=== PATIENT | female | born 1965 | race Hispanic/Latino ===

== ENCOUNTER 2017-12-25 17:22 | Emergency (ER) | payer MEDICARE ==
[~2017-12-25] VITALS: Ht 157.5 cm; Wt 108.9 kg
[~2017-12-25 17:22] MED LIST: AMLODIPINE BESY10 MG PO; KEPPRA500 MG PO; LISINOPRIL10 MG PO; NEURONTIN300 MG PO; NORCO 5-325 TA1 EACH PO
[2017-12-25] MEDS ORDERED: ONDANSETRON HCL INJ 2 MG/ML VIAL IV STA ×2 (17:58→18:07)
[2017-12-25] MEDS ORDERED: SODIUM CHLORIDE 0.9% 1000ML 1,000 ML IV STA (17:58)
[2017-12-25] MEDS ORDERED: LABETALOL HCL 5 MG/ML 20ML VIAL IV STA ×2 (18:05→18:48)
[2017-12-25 18:14] LABS: BASOPHILS % 0.3 % (0.0-1.0); EOSINOPHILS # (AUTO) 0.1 (0.0-0.4); EOSINOPHILS % 1.5 % (0.0-6.0); HEMATOCRIT 40.5 % (34.2-44.1); HEMOGLOBIN 13.2 g/dL (12.0-16.0); LYMPHOCYTES # (AUTO) 2.1 (1.0-3.2); LYMPHOCYTES % 27.5 % (18.0-39.1); MEAN CORPUSCULAR HEMOGLOBIN 27.2 pg (28-32); MEAN CORPUSCULAR HGB CONC 32.6 g/dL (31-35); MEAN CORPUSCULAR VOLUME 83.3 fL (81-99); MONOCYTES # (AUTO) 0.4 (0.2-0.8); MONOCYTES % 5.2 % (4.4-11.3); NEUTROPHILS # (AUTO) 4.9 (2.1-6.9); NEUTROPHILS % 65.2 % (38.7-80.0); PLATELET COUNT 152 x10e3/uL (140-360); RED BLOOD COUNT 4.86 x10e6/uL (3.6-5.1); RED CELL DISTRIBUTION WIDTH 13.1 % (11.7-14.4)
[2017-12-25 18:23] LABS: INR 1.06
[2017-12-25 18:24] LABS: PARTIAL THROMBOPLASTIN TIME 26.9 seconds (23.8-35.5)
[2017-12-25 18:33] LABS: ALANINE AMINOTRANSFERASE 40 IU/L (0-55); ALBUMIN 4.2 g/dL (3.5-5.0); ALBUMIN/GLOBULIN RATIO 1.2 (0.8-2.0); ALKALINE PHOSPHATASE 95 IU/L (40-150); ANION GAP 14.1 mmol/L (8-16); BLOOD UREA NITROGEN 12 mg/dL (7-26); BUN/CREATININE RATIO 14 (6-25); CALCIUM 9.9 mg/dL (8.4-10.2); CARBON DIOXIDE 25 mmol/L (22-29); CHLORIDE 106 mmol/L (98-107); CREATINE KINASE 89 IU/L (29-168); CREATININE, SERUM 0.88 mg/dL (0.57-1.11); EST GLOMERULAR FILTRATION RATE > 60 ML/MIN (60-); GLUCOSE 107 mg/dL (74-118); POTASSIUM 4.1 mmol/L (3.5-5.1); SODIUM 141 mmol/L (136-145)
--- NOTE | 2017-12-25 18:57 | Diagnostic Imaging Report ---
EXAMINATION: CT angiogram of the head. HISTORY: Headache, dizziness, now she had, history of intracranial aneurysm, COMPARISON STUDIES: Head CT on 06/09/2014 TECHNIQUE: Axial images were obtained from the skull base to the vertex. Coronal and sagittal images reconstructed from the axial data. Intravenous contrast: 100 cc of Isovue-370. For optimization of of anatomic evaluation, multi-planar reconstructions, maximum intensity projections, and advanced 3D off-line post-processing was obtained and performed on a dedicated stand-alone workstation under the direct supervision of the interpreting physician. Dose modulation, iterative reconstruction, and/or weight based adjustment of the mA/kV was utilized to reduce the radiation dose to as low as reasonably achievable. 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 Internal carotid arteries and proximal branches: Right: Patent. No abnormalities. Left: Patent. No abnormalities. Vertebral arteries: Patent. No abnormalities. Basilar artery: Patent. No abnormalities. Posterior cerebral arteries: Patent. No abnormalities. Anatomical variants: Acom :Patent Pcom: Patent on the left, not visualized on the right. Vertebral arteries: Codominant. Small fenestration of the basilar artery IMPRESSION: 1. 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 2. Otherwise unremarkable [place] angiogram. Signed by: Dr. Alison Godfrey M.D. on 12/25/2017 6:54 PM
[2017-12-25] MEDS ORDERED: MECLIZINE HCL 12.5 MG TAB PO ONE (19:00)
[2017-12-25 21:12] LABS: CLARITY,URINE CLEAR (CLEAR); COLOR,URINE YELLOW (YELLOW); LEUKOCYTE ESTERASE ,URINE NEGATIVE (NEGATIVE); NITRITE,URINE NEGATIVE (NEGATIVE)
[2017-12-25 21:13] LABS: BILIRUBIN,URINE NEGATIVE (NEGATIVE); EPITHELIAL CELLS,URINE MODERATE /LPF; KETONES,URINE NEGATIVE (NEGATIVE); PROTEIN,URINE DIPSTICK NEGATIVE (NEGATIVE); URINE UROBILINOGEN 0.2 mg/dL (0.2 - 1)
[2017-12-25] MEDS ORDERED: SODIUM CHLORIDE 0.9% 100 ML 100 ML ONE (22:35)
[2017-12-25] MEDS ORDERED: IOPAMIDOL 370 MG/ML 200 ML INFUS..BTL INJ ONE (22:36)
== END 2017-12-25 22:00 | disposition home or self-care (01) ==
LOC: ER 17:22
DX: R42 Dizziness and giddiness (principal); R11.2 Nausea with vomiting, unspecified; R51 Headache; H81.399 Other peripheral vertigo, unspecified ear; I10 Essential (primary) hypertension
CPT/HCPCS: 36415; 70496; 80053; 81001; 82550; 82553; 84484; 85025; 85610; 85730; 87086; 99284; J2405; J3490; J7030; Q9967

== ENCOUNTER 2018-06-08 23:15 | Emergency (ER) | payer MEDICARE ==
[~2018-06-08] VITALS: Ht 157.5 cm; Wt 108.9 kg
--- OUTSIDE RECORDS SUMMARY | 2018-06-08 23:17 | XMS REPORT | Clinical Summary ---
Author Author [facility] Address Unknown Phone Unavailable Care Team Providers Care Hse Manager Name Role Phone Janette Mendoza MD PCP Allergies Comments Active Allergy Reactions Severity Noted Date Penicillins Rash Low 10/27/2016 Medications End Date Status Medication Sig Dispensed Refills Start Date Active cyclobenzaprine Take 5 mg by 0 (FLEXERIL) 5 mg tablet mouth as needed for muscle spasms. Active lisinopril Take 1 tablet 90 tablet 1 (PRINIVIL,ZESTRIL) 20 mg (20 mg total) 7 tablet by mouth daily. Active blood sugar diagnostic 4 times 200 strip 5 strips (glucose blood) daily, 7 strip test fasting and 2 stripsIndications: Type 2 hours after diabetes mellitus with meals. E11.65 hyperglycemia, unspecified termite renewal inspector insulin use status Active blood-glucose meter 4 times 1 each 0 kitIndications: Type 2 daily, 7 diabetes mellitus with fasting and 2 hyperglycemia, hours after unspecified termite renewal inspector meals. E11.65 insulin use status Active lancets 30 gauge 4 times 200 each 3 miscIndications: Type 2 daily, 7 diabetes mellitus with fasting and 2 hyperglycemia, hours after unspecified nursing home meals. E11.65 insulin use status Active dapagliflozin-metformin Take 1 tablet 60 each 1 5-1,000 mg tablet, IR & by mouth 7 ER, biphasic 24hr daily. Active Problems Problem Noted Date Morbid obesity with BMI of 40.0-44.9, adult 10/27/2016 Glucose intolerance (impaired glucose tolerance) 10/27/2016 Essential hypertension 10/27/2016 Dietary counseling 10/27/2016 Exercise counseling 10/27/2016 Family History Medical History Relation Name Comments Diabetes Brother Nueropathy Diabetes Brother No Known Problems Father No Known Problems Mother Diabetes Sister Relation Name Status Comments Brother Brother Father Mother Sister Social History Date Tobacco Use Types Packs/Day Years Used Never Smoker Smokeless Tobacco: Never Used Alcohol Use Drinks/Week oz/Week Comments No Sex Assigned at Date Recorded Not on file Industry Job Start Date Occupation Not on file Not on file Not on file Travel End Travel History Travel Start No recent travel history available. Last Filed Vital Signs Not on file Plan of Treatment Health Maintenance Due Date Last Done Comments CERVICAL CANCER SCREENING 1987 BREAST CANCER SCREENING 2016 COLON CANCER SCREENING 2016 SHINGLES VACCINES (1 of 2016 2) INFLUENZA VACCINE 11/28/2017 Results Not on fileafter 06/07/2017 Insurance Payer Benefit Subscriber ID Type Phone Address Plan / Group AETNA MEDICARE AETNA xxxxxxxx HMO MEDICARE HMO/PPO [facility] Advance Directives Patient has advance care planning documents on file. For more information, luis alberto palacio contact: Bethel Gore [address] [place] [address]
--- OUTSIDE RECORDS SUMMARY | 2018-06-08 23:17 | XMS REPORT ---
Author Author [facility] Address Unknown Phone Unavailable Care Team Providers Care Interpersonal Communications Professor Name Role Phone MABELIsabel JOHN Unavailable Unavailable Problems This patient has no known problems. Allergies, Adverse Reactions, Alerts This patient has no known allergies or adverse reactions. Medications This patient has no known medications. Results Test Description Test Time Test Comments Text Results Atomic Results Result Comments SCR MAMM BILATERAL SHAREE CAD DIGITAL 2018-04-11 11:12:51 - SCR MAMM BILATERAL SHAREE CAD DIGITALBILATERAL DIGITAL SCREENING MAMMOGRAM 3D/2D WITH CAD: 04/11/2018CLINICAL: Asymptomatic. Digital breast tomosynthesis was performed in addition to routine CC and MLO views. Current mammographic images were evaluated by either a [employer] M-Vu or a M-Dot Network ImageChecker CAD (computer aided detection system). Comparison is made to exams dated 04/10/2017 mammogram, mammogram, and 03/22/2011 mammogram - [facility]. There are scattered fibroglandular tissues in both breasts. No suspicious mass, architectural distortion, malignant type calcification, or lymph node abnormality detected. Breast architecture is stable compared to prior exams.IMPRESSION: NEGATIVEThere is no mammographic evidence of malignancy. Resume annual screening mammography in one year. Aiden Maynard M.D. ss/penrad:04/11/2018 11:12:51 [place] Conservationist: Mahi SPAIN, [facility] sent: BIRADS 1-2 Normal Mammogram BI-RADS: 1 Negative CTA BRAIN 2017-12-25 18:37:[address] [address] Patient Name: JASON MAY MR #: [id number] : 1965 Age/Sex: 52/F Req #: [id number] Adm Physician: Ordered by: GREGORY CINTRON EXECUTIVE SALES ASSISTANT Report #: [id number] Location: ER Room/Bed: Procedure: [id number] CT/CTA BRAIN Exam Date: Exam Time: REPORT STATUS: Signed EXAMINATION: CT angiogram of the head. HISTORY: Headache, dizziness, now she had, history of intracranial aneurysm, COMPARISON STUDIES: Head CT on 06/09/2014 TECHNIQUE: Axial images were obtained from the skull base to the vertex. Coronal and sagittal images reconstructed from the axial data. Intravenous contrast: 100 cc of Isovue-370. For optimization of of anatomic evaluation, multi-planar reconstructions, maximum intensity projections, and advanced 3D off-line post-processing was obtained and performed on a dedicated stand-alone workstation under the direct supervision of the interpreting physician. Dose modulation, iterative reconstruction, and/or weight based adjustment of the mA/kV was utilized to reduce the radiation dose to as low as reasonably achievable. FINDINGS: Status post clipping of an anterior comm unicating artery aneurysm, streak artifact from metallic coils limits the evaluation of the anterior communicating/VISH complex region, no discrete residual or recurrent aneurysm. Internal carotid arteries and proximal branches: Right: Patent. No abnormalities. Left: Patent. No abnormalities. Vertebral arteries: Patent. No abnormalities. Basilar artery: Patent. No abnormalities. Posterior cerebral arteries: Patent. No abnormalities. Anatomical variants: Acom :Patent Pcom: Patent on the left, not visualized on the right. Vertebral arteries: Codominant. Small fenestration of the basilar artery IMPRESSION: 1. 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 2. Otherwise unremarkable [place] CT angiogram. Signed by: Dr. Juliana Godfrey M.D. on 12/25/2017 6:54 PM Dictated By: JULIANA GODFREY MD 53 Transcribed By: ALEXANDER on 12/25/171853 COPY TO: GREGORY CINTRON NP
[2018-06-08 23:47] LABS: BASOPHILS % 0.3 % (0.0-1.0); EOSINOPHILS # (AUTO) 0.1 (0.0-0.4); EOSINOPHILS % 1.6 % (0.0-6.0); HEMATOCRIT 41.9 % (34.2-44.1); HEMOGLOBIN 13.4 g/dL (12.0-16.0); LYMPHOCYTES # (AUTO) 2.6 (1.0-3.2); LYMPHOCYTES % 32.8 % (18.0-39.1); MEAN CORPUSCULAR HEMOGLOBIN 26.5 pg (28-32); MONOCYTES # (AUTO) 0.4 (0.2-0.8); MONOCYTES % 5.4 % (4.4-11.3); NEUTROPHILS # (AUTO) 4.7 (2.1-6.9); NEUTROPHILS % 59.6 % (38.7-80.0); PLATELET COUNT 114 x10e3/uL (140-360); RED BLOOD COUNT 5.05 x10e6/uL (3.6-5.1); RED CELL DISTRIBUTION WIDTH 13.5 % (11.7-14.4)
[2018-06-08 23:52] LABS: CLARITY,URINE SL CLOUDY (CLEAR); COLOR,URINE YELLOW (YELLOW); LEUKOCYTE ESTERASE ,URINE NEGATIVE (NEGATIVE); NITRITE,URINE NEGATIVE (NEGATIVE); PROTEIN,URINE DIPSTICK NEGATIVE (NEGATIVE)
[2018-06-08 23:53] LABS: BILIRUBIN,URINE NEGATIVE (NEGATIVE); KETONES,URINE NEGATIVE (NEGATIVE); URINE UROBILINOGEN 0.2 mg/dL (0.2 - 1)
[2018-06-09 00:02] LABS: BACTERIA,URINE MODERATE /HPF; EPITHELIAL CELLS,URINE FEW /LPF; MUCUS,URINE FEW (RARE); RBC,URINE 0-5 /HPF (0-5)
[2018-06-09 00:10] LABS: ALANINE AMINOTRANSFERASE 26 IU/L (0-55); ALBUMIN 4.1 g/dL (3.5-5.0); ALBUMIN/GLOBULIN RATIO 1.1 (0.8-2.0); ALKALINE PHOSPHATASE 120 IU/L (40-150); AMYLASE 65 U/L (25-125); ANION GAP 14.8 mmol/L (8-16); BLOOD UREA NITROGEN 16 mg/dL (7-26); BUN/CREATININE RATIO 19 (6-25); CALCIUM 9.2 mg/dL (8.4-10.2); CARBON DIOXIDE 25 mmol/L (22-29); CHLORIDE 104 mmol/L (98-107); CREATININE, SERUM 0.85 mg/dL (0.57-1.11); EST GLOMERULAR FILTRATION RATE > 60 ML/MIN (60-); GLUCOSE 142 mg/dL (74-118); LIPASE 69 U/L (8-78); POTASSIUM 3.8 mmol/L (3.5-5.1); SODIUM 140 mmol/L (136-145)
[2018-06-09] MEDS ORDERED: ONDANSETRON HCL INJ 2MG/ML 2ML 2 MG/ML VIAL IV STA (00:25)
--- NOTE | 2018-06-09 01:31 | Diagnostic Imaging Report ---
EXAM: CT Abdomen and Pelvis WITHOUT contrast INDICATION: Pain COMPARISON: 10/31/2007 CT, no report available TECHNIQUE: Abdomen and Pelvis was scanned utilizing a multidetector helical scanner without the use of IV contrast. Coronal and sagittal reformations were obtained. IV CONTRAST: None COMPLICATIONS: None RADIATION DOSE: Total DLP: 855 mGy*cm Estimated effective dose: (DLP x 0.015 x size factor) mSv CTDIvol has been reviewed. It is below the limits set by the Radiation Protocol Committee (RPC). Appropriate CT dose reduction techniques were utilized. FINDINGS: Abdomen: Lung Bases: No acute findings. Solid Organs: Liver, adrenals, kidneys, spleen, and pancreas unremarkable. No hydronephrosis or renal calculi. Distal ureters poorly evaluated due to spray artifact. Upper GI Tract: No small bowel obstructive changes. Vascularity: No aortic aneurysm. Lymph Nodes: No suspicious adenopathy. Other: None. Pelvis: Bladder: Inadequately evaluated due to spray artifact. Other: Uterus/adnexa grossly unremarkable within limitations of CT evaluation. Colon: No acute colonic findings. Moderate stool. Bones: L5 pars defects with grade 1 anterolisthesis L5 on S1. IMPRESSION: 1. No acute findings. 2. See above for full details. Signed by: Dr. Chris Burton MD on 06/09/2018 1:28 AM
[2018-06-09 01:52] VITALS: BP 123/83
== END 2018-06-09 01:59 | disposition home or self-care (01) ==
LOC: ER 23:15
DX: R10.32 Left lower quadrant pain (principal); N30.90 Cystitis, unspecified without hematuria; I10 Essential (primary) hypertension; E11.9 Type 2 diabetes mellitus without complications; G40.909 Epilepsy, unspecified, not intractable, without status epilepticus
CPT/HCPCS: 36415; 74176; 80053; 81001; 82150; 83690; 85025; 96374; 99284; J2405

== ENCOUNTER 2019-01-15 19:55 | Emergency (ER) | payer MEDICARE ==
[~2019-01-15] VITALS: Ht 157.5 cm; Wt 108.9 kg
[2019-01-15] MEDS ORDERED: SODIUM CHLORIDE 0.9% 500ML 500 ML IV STA (19:58)
[2019-01-15] MEDS ORDERED: SODIUM CHLORIDE 0.9% 1000ML 1,000 ML IV STA (19:58)
[2019-01-15] MEDS ORDERED: ONDANSETRON HCL INJ 2MG/ML 2ML 2 MG/ML VIAL IV STA (19:58)
--- OUTSIDE RECORDS SUMMARY | 2019-01-15 19:58 | XMS REPORT | Clinical Summary ---
Author Author [facility] Address Unknown Phone Unavailable Care Team Providers Care Metal Patternmaker Apprentice Name Role Phone Janette Mendoza MD PCP [...] diabetes mellitus with meals. E11.65 hyperglycemia, unspecified vermin exterminator insulin use status Active blood-glucose meter 4 times 1 each 0 kitIndications: Type 2 daily, 7 diabetes mellitus with fasting and 2 hyperglycemia, hours after unspecified vermin exterminator meals. E11.65 insulin use status Active lancets 30 gauge 4 times 200 each 3 miscIndications: Type 2 daily, 7 diabetes mellitus with fasting and 2 hyperglycemia, hours after unspecified group home meals. E11.65 insulin use status Active [...] Used Never Smoker Smokeless Tobacco: Never Used Drinks/Week oz/Week Comments Alcohol Use No Sex Assigned at Date Recorded Not on file Industry Job Start Date Occupation Not on file Not on file Not on file Travel End Travel History Travel Start No recent travel history available. Last Filed Vital Signs Not on file Plan of Treatment Health Maintenance Due Date Last Done Comments CERVICAL CANCER SCREENING 1987 BREAST CANCER SCREENING 2016 COLONOSCOPY SCREENING 2016 SHINGLES VACCINES (#1) 2016 INFLUENZA VACCINE 11/28/2018 Results Not on fileafter 01/14/2018 Insurance Type Payer Benefit Subscriber ID Effective Phone Address Plan / Dates Group HMO AETNA MEDICARE AETNA xxxxxxxx 2016-P MEDICARE resent HMO/PPO [facility] Advance Directives For more information, please contact: [phone] Patient Leadership Program Internship Explanation Type Date Recorded Advance Directives, Living Will and Medical Power of Differential Specialist
--- OUTSIDE RECORDS SUMMARY | 2019-01-15 19:59 | XMS REPORT | Summary of Care ---
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, dysplasia Reason for Visit LEFT HIP PAIN Vital Signs Most recent to 1 2 oldest [Reference Range]: Height 157.48 cm (07/22/2013 15:10:00 [place] Temperature Oral 98.6 DegF [96.4-99.1 DegF] (07/22/2013 15:10:00 [place] Systolic Blood 140 mmHg 147 mmHg Pressure [90-140 (07/22/2013 19:11:00 [place] *HI* mmHg] (07/22/2013 15:10:00 [place] Diastolic Blood 78 mmHg 88 mmHg Pressure [60-90 (07/22/2013 19:11:00 [place] (07/22/2013 15:10:00 [place] mmHg] Respiratory Rate 18 BRMIN 16 BRMIN [14-20 BRMIN] (07/22/2013 19:11:00 [place]) (07/22/2013 15:10:00 [place] Peripheral Pulse 78 bpm 86 bpm Rate [60-100 bpm] (07/22/2013 19:11:00 [place] (07/22/2013 15:10:00 [place] Weight 105 kg (07/22/2013 15:10:00 [place] Body Mass Index 42.34 m2 (07/22/2013 15:10:00 [place]) Problem List Condition Effective Dates Status Health Status Informant Aneurysm(Confirmed)1 Resolved HTN - Resolved Hypertension(Confirm ed) 1Cerebral aneurysm Allergies, Adverse Reactions, Alerts Status Substance Reaction Severity Active Dilaudid Active iodine Active penicillins Medications Medication Instructions Start Date Stop Date Status ibuprofen 800 mg, Route: PO, Drug form: TAB, 07/22/2013 07/22/2013 Completed ONCE, Dosing Weight 105, kg, Priority: STAT, Start date: 07/22/13 18:12:00, Stop date: 07/22/13 18:12:00 ibuprofen 800 mg 800 mg=1 tab, PO, Q8H, Fever or 07/22/2013 08/01/2013 Ordered oral tablet Pain, Take with food, # 30 tab, 0 Refill(s) Take with food [place] 5/325 oral 1-2 tab, PO, Q4-6H, Pain, # 30 tab, 07/22/2013 07/27/2013 Ordered tablet 0 Refill(s) [place] 5/325 oral 2 tab, Route: PO, Dosing Weight 07/22/2013 07/22/2013 Completed tablet 105, kg, ONCE, Start date: 07/22/13 18:12:00, Stop date: 07/22/13 18:12:00, Medications Administered During Your Visit No data available for this section Immunizations No data available for this section
--- OUTSIDE RECORDS SUMMARY | 2019-01-15 19:59 | XMS REPORT | CCD ---
Author Author Auto Generated Organization [facility] Address Unknown Phone Unavailable Care Team Providers Care Shovel Loader Operator Name Role Phone MaryJessica Wolf CP Allergies, Adverse Reactions, Alerts Substance Reaction Status Dilaudid Active penicillins Active Problem List Condition Effective Dates Status Aneurysm1 Resolved HTN - Hypertension Resolved 1Cerebral aneurysm Medications Medication Instructions Start Date End Date Status Sodium Chloride 0.9% 1,000 mL, Rate: 1000 ml/hr, Infuse 09/08/2012 09/08/2012 Completed IV 1,000 mL over: 1 hr, Route: IV, Dosing Weight 105 kg, Total Volume: 1,000, Start date: 09/08/12 19:31:00, Duration: 1 doses or times, Stop date: 09/08/12 20:30:00 Xanax 0.5 mg oral 1 mg, 2 tab, PO, TID, PRN, 30 tab, 09/08/2012 Ordered tablet Anxiety, Substitution Allowed Norvasc 10 mg oral 10 mg, 1 tab, PO, BID, 30 tab, 09/08/2012 Ordered tablet Substitution Allowed, TAB Combivent inhalation 2 puff, INHALER, QID, PRN, 14 gm, 09/08/2012 Ordered aerosol with adapter WHEEZING, Substitution Allowed, Maintenance ranitidine 150 mg 150 mg, 1 tab, PO, BID, 6 tab, 09/08/2012 Ordered oral tablet Substitution Allowed paroxetine 20 mg 20 mg, 1 tab, PO, Daily, 30 tab, 09/08/2012 Ordered oral tablet Substitution Allowed, TAB Reglan 10 mg, 2 mL, Route: IVP, Drug form: 09/08/2012 09/08/2012 Completed INJ, ONCE, Dosing Weight 105, kg, Priority: STAT, Start date: 09/08/12 19:29:00, Stop date: 09/08/12 19:29:00 gabapentin 300 mg 300 mg, 1 cap, PO, BID, 90 cap, 09/08/2012 Ordered oral capsule Substitution Allowed cyclobenzaprine 10 10 mg, 1 tab, PO, TID, PRN, 30 tab, 09/08/2012 Ordered mg oral tablet for spasm, Substitution Allowed, TAB labetalol 300 mg 300 mg, 1 tab, PO, BID, 180 tab, 09/08/2012 Ordered oral tablet Substitution Allowed, TAB Benadryl 25 mg, 1 cap, Route: PO, Drug form: 09/08/2012 09/08/2012 Completed CAP, ONCE, Dosing Weight 105, kg, Priority: STAT, Start date: 09/08/12 22:26:00, Stop date: 09/08/12 22:26:00 ibuprofen 800 mg, 1 tab, Route: PO, Drug 09/08/2012 09/08/2012 Completed form: TAB, ONCE, Dosing Weight 105, kg, Priority: STAT, Start date: 09/08/12 22:26:00, Stop date: 09/08/12 22:26:00 Keppra 500 mg oral 500 mg, 1 tab, PO, BID, 120 tab, 09/08/2012 Ordered tablet Substitution Allowed NS (Bolus) IV 1000 1,000 mL, Rate: 1,000 ml/hr, Infuse 09/08/2012 09/08/2012 Deleted mL over: 1 hr, Route: IV, Dosing Weight 105 kg, Total Volume: 1,000, Priority: STAT, Start date: 09/08/12 19:27:00, Duration: 1 doses or times, Stop date: 09/08/12 19:27:00 Omnipaque 350mg/ml 145 mL, Route: IVP, Drug Form: 09/08/2012 09/08/2012 Completed SOLN, Dosing Weight 105, kg, ONCALL, STAT, Start date: 09/08/12 21:12:00, Duration: 1 doses or times, Stop date: 09/09/12 0:00:00, Dose=2.2ml/kg, Max [id number] -- "To be infused by Radiology Staff ONLY" Dose=2.2ml/kg, Max [id number] -- "To be infused by Radiology Staff ONLY" ondansetron 8 mg, Route: IVP, Drug form: INJ, 09/08/2012 09/08/2012 Completed ONCE, Dosing Weight 105, kg, Priority: STAT, Start date: 09/08/12 20:02:00, Stop date: 09/08/12 20:02:00 Vital Signs Most recent to oldest [Reference Range]: 1 Height 157.48 cm (09/08/2012 18:29:00) Weight 105 kg (09/08/2012 18:29:00) Results URINALYSIS Most recent to oldest [Reference Range]: 1 UA Turbidity [Clear] Clear (09/08/2012 22:15:20) UA Color [Yellow] Yellow *NA* (09/08/2012 22:15:20) UA pH [5.0-8.0] 8.0 (09/08/2012 22:15:20) UA Spec Grav [<=1.030] 1.010 (09/08/2012 22:15:20) UA Glucose [Negative mg/dL] Negative mg/dL (09/08/2012 22:15:20) UA Blood [Negative] Negative (09/08/2012 22:15:20) UA Ketones [Negative mg/dL] Negative mg/dL *NA* (09/08/2012 22:15:20) UA Protein [Negative mg/dL] Negative mg/dL (09/08/2012 22:15:20) UA Urobilinogen [0.1-1.0 EU/dL] 0.2 EU/dL (09/08/2012 22:15:20) UA Bili [Negative] Negative *NA* (09/08/2012 22:15:20) UA Leuk Est [Negative] Negative (09/08/2012 22:15:20) UA Nitrite [Negative] Negative (09/08/2012 22:15:20) UA WBC [None Seen /HPF] 0-2 /HPF (09/08/2012 22:15:20) UA RBC [0-2 /HPF] 0-2 /HPF (09/08/2012 22:15:20) UA Bacteria [None Seen /HPF] Few /HPF (09/08/2012 22:15:20) UA Sq Epi [Few /LPF] Moderate /LPF *ABN* (09/08/2012 22:15:20) Micro? Performed (09/08/2012 22:15:20) BLOOD BANK RESULTS Most recent to oldest [Reference Range]: 1 ABO/Rh O POS *Unknown* (09/08/2012 20:07:00) Antibody Scrn Negative (09/08/2012 20:07:00) CHEMISTRY Most recent to oldest [Reference Range]: 1 Sodium Lvl [135-145 mEq/L] 140 mEq/L (09/08/2012 20:00:00) Potassium Lvl [3.5-5.1 mEq/L] 4.0 mEq/L (09/08/2012 20:00:00) Chloride Lvl [95-109 mEq/L] 102 mEq/L (09/08/2012 20:00:00) CO2 [24-32 mEq/L] 28 mEq/L (09/08/2012 20:00:00) AGAP [10.0-20.0 mEq/L] 14.0 mEq/L (09/08/2012 20:00:00) Creatinine Lvl [0.5-1.4 mg/dL] 0.9 mg/dL (09/08/2012 20:00:00) eGFR 77 mL/min/1.73m2 1 *NA* (09/08/2012 20:00:00) BUN [7-22 mg/dL] 12 mg/dL (09/08/2012 20:00:00) Glucose Lvl [70-99 mg/dL] 145 mg/dL 2 *HI* (09/08/2012 20:00:00) Total Protein [6.4-8.4 g/dL] 7.4 g/dL (09/08/2012 20:00:00) Albumin Lvl [3.5-5.0 g/dL] 4.0 g/dL (09/08/2012 20:00:00) Globulin [2.0-4.0 g/dL] 3.4 g/dL (09/08/2012 20:00:00) A/G Ratio [0.7-1.6] 1.2 (09/08/2012 20:00:00) Calcium Lvl [8.5-10.5 mg/dL] 8.3 mg/dL *LOW* (09/08/2012 20:00:00) Phosphorus [2.5-4.5 mg/dL] 2.6 mg/dL (09/08/2012 20:00:00) Magnesium Lvl [1.8-2.4 mg/dL] 1.8 mg/dL (09/08/2012 20:00:00) ALT [0-65 unit/L] 33 unit/L (09/08/2012:00:00) AST [0-37 unit/L] 25 unit/L (09/08/2012:00:00) Alk Phos [39-136 unit/L] 99 unit/L (09/08/2012 20:00:00) Bili Total [0.2-1.3 mg/dL] 0.5 mg/dL (09/08/2012:00:00) Bili Direct [0.0-0.3 mg/dL] 0.1 mg/dL (09/08/2012:00:00) Bili Indirect [0.0-1.0 mg/dL] 0.4 mg/dL (09/08/2012:00:00) Lipase Lvl [73-393 unit/L] 133 unit/L (09/08/2012:00:00) Lactic Acid Lvl [0.5-2.2 mMol/L] 1.0 mMol/L (09/08/2012:00:00) 1Result Comment: The eGFR is calculated using the CKD-EPI formula. In most young, healthy individuals the eGFR will be >90 mL/min/1.73m2. The eGFR declines with age. An eGFR of 60-89 may be normal in some populations, particularly the elderly, for whom the CKD-EPI formula has not been extensively validated. Use of the eGFR is not recommended in the following populations: Individuals with unstable creatinine concentrations, including patients and those with serious co-morbid conditions. Patients with extremes in muscle mass or diet. The data above are obtained from the National Kidney Disease Education Program ( NKDEP) which additionally recommends that when the eGFR is used in patients with extremes of body mass index for purposes of drug dosing, the eGFR should be mul tiplied by the estimated BMI. 2Interpretive Data: Adult reference range values reflect the clinical guidelines of the [place] [employer]. HEMATOLOGY Most recent to oldest [Reference Range]: 1 WBC [3.7-10.4 K/CMM] 7.2 K/CMM (09/08/2012 20:00:00) RBC [4.20-5.40 M/CMM] 4.56 M/CMM (09/08/2012 20:00:00) Hgb [12.0-16.0 g/dL] 12.5 g/dL (09/08/2012 20:00:00) Hct [36.0-48.0 %] 37.6 % (09/08/2012 20:00:00) MCV [81.0-99.0 fL] 82.5 fL (09/08/2012 20:00:00) MCH [27.0-31.0 pg] 27.4 pg (09/08/2012 20:00:00) MCHC [32.0-36.0 g/dL] 33.2 g/dL (09/08/2012 20:00:00) RDW [11.5-14.5 %] 12.1 % (09/08/2012 20:00:00) Platelet [133-450 K/CMM] 130 K/CMM *LOW* (09/08/2012 20:00:00) MPV [7.4-10.4 fL] 8.9 fL (09/08/2012 20:00:00) Segs [45.0-75.0 %] 89.4 % *HI* (09/08/2012 20:00:00) Lymphocytes [20.0-40.0 %] 6.8 % *LOW* (09/08/2012 20:00:00) Monocytes [2.0-12.0 %] 2.7 % (09/08/2012 20:00:00) Eosinophils [0.0-4.0 %] 0.9 % (09/08/2012 20:00:00) Basophils [0.0-1.0 %] 0.2 % (09/08/2012 20:00:00) Segs-Bands # [1.5-8.1 K/CMM] 6.4 K/CMM (09/08/2012 20:00:00) Lymphocytes # [1.0-5.5 K/CMM] 0.5 K/CMM *LOW* (09/08/2012 20:00:00) Monocytes # [0.0-0.8 K/CMM] 0.2 K/CMM (09/08/2012 20:00:00) Eosinophils # [0.0-0.5 K/CMM] 0.1 K/CMM (09/08/2012 20:00:00) Basophils # [0.0-0.2 K/CMM] 0.0 K/CMM (09/08/2012 20:00:00) Anisocyte [None Seen] 1+ *ABN* (09/08/2012 20:00:00) Toxic Gran [None Seen] Slight *ABN* (09/08/2012 20:00:00) Stomatocyte [None Seen] Slight *ABN* (09/08/2012 20:00:00) Large Plt [None Seen] Slight *ABN* (09/08/2012 20:00:00) PT [12.0-14.7 seconds] 13.6 seconds (09/08/2012 20:00:00) INR [0.85-1.17] 1.02 3 (09/08/2012 20:00:00) PTT [22.9-35.8 seconds] 29.1 seconds 4 (09/08/2012 20:00:00) 3Interpretive Data: RECOMMENDED RANGES FOR PROTIME INR: 2.0-3.0 for most medical and surgical thromboembolic states. 2.5-3.5 for artificial heart valves and recurrent embolism. INR SHOULD BE USED ONLY FOR PATIENTS ON STABLE ANTICOAGULANT THERAPY. 4Interpretive Data: Heparin Therapeutic Range: 57 - 92 Seconds Microbiology Reports PROCEDURE:Culture: Blood STATUS: In Progress BODY SITE: COLLECTED DATE/TIME: 09/08/2012 20:05:10 SOURCE: Blood FREE TEXT SOURCE: set 2 of 2-Rt Wrist PRELIMINARY REPORTS Preliminary Report No Growth At 3 Days Preliminary Report No Growth At 2 Days Preliminary Report No Growth At 1 Day PROCEDURE:Culture: Blood STATUS: In Progress BODY SITE: COLLECTED DATE/TIME: 09/08/2012 20:00:04 SOURCE: Blood FREE TEXT SOURCE: set 1 of 2-Rt AC PRELIMINARY REPORTS Preliminary Report No Growth At 1 Day Preliminary Report No Growth At 3 Days Preliminary Report No Growth At 2 Days
--- OUTSIDE RECORDS SUMMARY | 2019-01-15 19:59 | XMS REPORT | Summary of Care ---
Author Author [facility] Organization [facility] Address Unknown Phone Unavailable Encounter SHIRA Matt(PIERRE) [id number] Date(s): 07/21/15 - 07/21/15 [facility] [address] [employer] provided by [employer] [place] [address]- Discharge Disposition: Not Seen Attending Physician: Tarsha Segal MD Vital Signs Most recent to 1 2 oldest [Reference Range]: Height 157.48 cm (07/21/15 4:22 PM) Temperature Oral 98.2 DegF 97.8 DegF [96.4-99.1 DegF] (07/21/15 7:24 PM) (07/21/15 4:22 PM) Blood Pressure 141/84 mmHg 148/90 mmHg [90-140/60-90 mmHg] *HI* *HI* (07/21/15 7:24 PM) (07/21/15 4:22 PM) Respiratory Rate 18 BRMIN 20 BRMIN [14-20 BRMIN] (07/21/15 7:24 PM) (07/21/15 4:22 PM) Peripheral Pulse 64 bpm 72 bpm Rate [60-100 bpm] (07/21/15 7:24 PM) (07/21/15 4:22 PM) Weight 108.182 kg (07/21/15 4:22 PM) Body Mass Index 43.62 m2 (07/21/15 4:22 PM) Problem List Condition Effective Dates Status Health Status Informant Aneurysm(Confirmed)1 Resolved Fracture(Confirmed) Resolved HTN - Resolved Hypertension(Confirm ed) 1Cerebral aneurysm Allergies, Adverse Reactions, Alerts Substance Reaction Severity Status Dilaudid Active iodine Active penicillins Active traMADol Active Medications No data available for this section Results No data available for this section Immunizations No data available for this section Procedures Procedure Date Related Diagnosis Body Site Hip replacement1 1Bilateral Social History Social History Type Response Substance Abuse Use: None. Alcohol Past Smoking Status Former smoker; Type: Cigarettes; Exposure to Tobacco Smoke None; Cigarette Smoking Last 365 Days No; Reg Smoking Cessation Counseling No Assessment and Plan No data available for this section
--- OUTSIDE RECORDS SUMMARY | 2019-01-15 19:59 | XMS REPORT | Summary of Care ---
Author Author [facility] Organization [facility] Address Unknown Phone Unavailable Encounter SHIRA Matt(PIERRE) [id number] Date(s): 05/08/15 - 05/08/15 [facility] [address] [employer] provided by [employer] [facility] [employer] [place] [address]- Discharge Diagnosis: Acute headache Discharge Disposition: Home Attending Physician: Tarsha Segal MD Vital Signs 1 2 3 Most recent to oldest [Reference Range]: 97.2 DegF (05/08/15 6:05 PM) 96.7 DegF (05/08/15 5:30 PM) 98.4 DegF (05/08/15 2:49 PM) Temperature Oral [96.4-99.1 DegF] 148/79 mmHg *HI* (05/08/15 6:05 PM) 156/72 mmHg *HI* (05/08/15 5:30 PM) 165/82 mmHg *HI* (05/08/15 2:49 PM) Blood Pressure [90-140/60-90 mmHg] 17 BRMIN (05/08/15 6:05 PM) 18 BRMIN (05/08/15 5:30 PM) 18 BRMIN (05/08/15 2:49 PM) Respiratory Rate [14-20 BRMIN] 65 bpm (05/08/15 5:30 PM) 65 bpm (05/08/15 2:49 PM) Peripheral Pulse Rate [60-100 bpm] Problem List Condition Effective Dates Status Health Status Informant Aneurysm(Confirmed)1 Resolved Fracture(Confirmed) Resolved HTN - Resolved Hypertension(Confirm ed) 1Cerebral aneurysm Allergies, Adverse Reactions, Alerts Substance Reaction Severity Status Dilaudid Active iodine Active penicillins Active traMADol Active Medications ketOROLAC 30 mg, 1 mL, Route: IVP, Drug form: INJ, ONCE, Dosing Weight 113.182, kg, Priori ty: STAT, Start date: 05/08/15 16:12:00, Stop date: 05/08/15 16:12:00 Notes: (Same as:Toradol) IV bolus must be given >15 seconds. Give IM administration slowly and deeply into the muscle.Not for use > 4 days MEDICATION WASTE Product Size: 30 mgProduct Wasted: 0 mg Start Date: 05/08/15 Stop Date: 05/08/15 Status: Completed Valium 5 mg, 1 tab, Route: PO, Drug form: TAB, ONCE, Dosing Weight 113.182, kg, Priorit y: STAT, Start date: 05/08/15 16:11:00, Stop date: 05/08/15 16:11:00 Notes: (Same as: Valium) Start Date: 05/08/15 Stop Date: 05/08/15 Status: Completed Results No data available for this section [...]
--- OUTSIDE RECORDS SUMMARY | 2019-01-15 19:59 | XMS REPORT | Continuity of Care Document ---
Author Author [employer] Address Unknown Phone Unavailable Care Team Providers Care Head Rose Grower Name Role Phone [employer] Unavailable Unavailable Problems Problem Status Onset Date Classification Date Reported Comments Source CHAKRABORTY/NAUSEA/DIZZINESS Active 07/21/2015 [facility] Discharge Diagnosis: Acute headache 05/08/2015 05/11/2015 [facility] NECK PAIN, HEADACHE Active 05/08/2015 [facility] Discharge Diagnosis: Headache 04/27/2015 04/30/2015 [facility] HEADACHE Active 04/27/2015 [facility] Discharge Diagnosis: Abdominal pain 01/12/2015 01/15/2015 [facility] ABDOMINAL PN/COUGH Active 01/11/2015 [facility] Discharge Diagnosis: hip pain, dysplasia 07/22/2013 07/25/2013 [facility] LEFT HIP PAIN Active 07/22/2013 [facility] SYMPTOMS OF PREVIOUS ANNUERISM Active 09/08/2012 [facility] Aneurysm (morphologic abnormality) Resolved Problem 07/24/2015 Cerebral aneurysm [facility] Hypertensive disorder, systemic arterial (disorder) Resolved Problem 07/24/2015 [facility] Aneurysm Resolved Problem 09/11/2012 1Cerebral aneurysm [facility] HTN - Hypertension Resolved Problem 09/11/2012 [facility] Fracture of bone (disorder) Resolved Problem 07/24/2015 [facility] Dizziness Active Diagnosis 02/14/2017 [facility] HTN (hypertension), benign Active Problem 02/14/2017 [facility] Brain aneurysm Active Problem 02/14/2017 [facility] Type 2 diabetes mellitus with diabetic nephropathy, unspecified vermin exterminator insulin use status Active Problem 02/14/2017 [facility] Encounter for pre-operative cardiovascular clearance Active Diagnosis 02/14/2017 [facility] Medications Medication Details Route Status Patient Instructions Ordering Provider Order Date Source Ketorolac 30 mg, 1 mL, Route: IVP, Drug form: INJ, ONCE, Dosing Weight 113.182, kg, Priority: STAT, Start date: 05/08/15 16:12:00, Stop date: 05/08/15 16:12:00Notes: (Same as:Toradol) IV bolus must be given >15 seconds. Give IM administration slowly and deeply into the muscle. Not for use > 4 days MEDICATION WASTE Product Size: 30 mg Product Wasted: 0 mg Inactive 05/08/2015 [facility] Valium 5 mg, 1 tab, Route: PO, Drug form: TAB, ONCE, Dosing Weight 113.182, kg, Priority: STAT, Start date: 05/08/15 16:11:00, Stop date: 05/08/15 16:11:00Notes: (Same as: Valium) Inactive 05/08/2015 [facility] Acetaminophen 1,000 mg, Route: PO, Drug form: TAB, ONCE, Dosing Weight 113.182, kg, Priority: STAT, Start date: 04/27/15 19:48:00, Stop date: 04/27/15 19:48:00 Inactive 04/28/2015 [facility] Benadryl 25 mg, Route: PO, Drug form: CAP, ONCE, Dosing Weight 113.182, kg, Priority: STAT, Start date: 04/27/15 19:45:00, Stop date: 04/27/15 19:45:00 Inactive 04/28/2015 [facility] Reglan 10 mg, Route: IVP, Drug form: INJ, ONCE, Dosing Weight 113.182, kg, Priority: STAT, Start date: 04/27/15 19:45:00, Stop date: 04/27/15 19:45:00 Inactive 04/28/2015 [facility] Ketorolac 30 mg, Route: IVP, Drug form: INJ, ONCE, Dosing Weight 113.182, kg, Priority: STAT, Start date: 04/27/15 18:43:00, Stop date: 04/27/15 18:43:00 Inactive 04/28/2015 [facility] Motrin 800 mg, 1 tab, Route: PO, Drug form: TAB, ONCE, Dosing Weight 113.182, kg, Priority: STAT, Start date: 04/27/15 17:56:00, Stop date: 04/27/15 17:56:00Notes: (Same as: Motrin) "Do Not Crush" Take with food. Inactive 04/27/2015 [facility] Valium 5 mg, Route: IVP, Drug form: INJ, ONCE, Dosing Weight 113.182, kg, Priority: STAT, Start date: 04/27/15 17:46:00, Stop date: 04/27/15 17:46:00 Inactive 04/27/2015 [facility] Reglan 10 mg, Route: IVP, Drug form: INJ, ONCE, Dosing Weight 113.182, kg, Priority: STAT, Start date: 04/27/15 17:26:00, Stop date: 04/27/15 17:26:00 Inactive 04/27/2015 [facility] Sodium Chloride 0.154 MEQ/ML Injectable Solution 1,000 mL, 1,000 ml/hr, Infuse Over: 1 hr, Route: IV, ONCE, Priority: STAT, Dosing Weight 113.182 kg, Start date: 04/27/15 17:26:00, Duration: 1 doses or times, Stop date: 04/27/15 17:26:00 Inactive 04/27/2015 [facility] Acetaminophen 300 MG / Codeine Phosphate 30 MG Oral Tablet [Tylenol with Codeine #3] 1 - 2 tab, PO, Q6H, PRN Pain, X 4 day, # 32 tab, 0 Refill(s) Active 01/12/2015 [facility] 24 HR tramadol hydrochloride 100 MG Extended Release Tablet 100 mg=1 tab, PO, Daily, # 30 tab, 0 Refill(s) Active 01/12/2015 [facility] Ondansetron 4 MG Oral Tablet [Zofran] 4 mg=1 tab, PO, Q6H, PRN Nausea/Vomiting, X 8 day, # 30 tab, 0 Refill(s) Active 01/12/2015 [facility] Ondansetron 4 mg, Route: IVP, Drug form: INJ, ONCE, Dosing Weight 105, kg, Priority: STAT, Start date: 01/12/15 5:19:00, Stop date: 01/12/15 5:19:00 Inactive 01/12/2015 [facility] Lisinopril 20 mg, Route: PO, ONCE, Dosing Weight 105, kg, Priority: STAT, Start date: 01/12/15 4:33:00, Stop date: 01/12/15 4:33:00 Inactive 01/12/2015 [facility] GI cocktail 30 mL, Route: PO, Drug Form: SUSP, Dosing Weight 105, kg, ONCE, STAT, Start date: 01/12/15 4:23:00, Stop date: 01/12/15 4:23:00Notes: G.I. Cocktail=antacid with simethicone 22.5 mL - lidocaine viscous 7.5 mL Inactive 01/12/2015 [facility] Ondansetron 4 mg, 2 mL, Route: IVP, Drug form: INJ, ONCE, Dosing Weight 105, kg, Priority: STAT, Start date: 01/12/15 4:23:00, Stop date: 01/12/15 4:23:00Notes: (Same as: Ramila) MEDICATION WASTE Product Size: 4 mg Product Wasted: ___ mg Inactive 01/12/2015 [facility] Saline Flush 0.9% 10 mL, Route: IVP, Drug Form: INJ, Dosing Weight 105, kg, PRN, PRN Line Flush, Start date: 01/12/15 4:23:00, Duration: 30 day, Stop date: 02/11/15 4:22:00Notes: Same as: BD Posiflush Sterile Inactive 01/12/2015 [facility] Morphine 4 mg, 1 mL, Route: IVP, Drug form: INJ, ONCE, Dosing Weight 105, kg, Priority: STAT, Start date: 01/12/15 4:23:00, Stop date: 01/12/15 4:23:00Notes: (Same as:MORPhine Sulfate) Inactive 01/12/2015 [facility] ibuprofen 800 mg oral tablet 800 mg=1 tab, PO, Q8H, Fever or Pain, Take with food, # 30 tab, 0 Refill(s)Take with food Active 07/23/2013 [facility] Acetaminophen 325 MG / Hydrocodone Bitartrate 5 MG Oral Tablet [Emporium 5/325] 1-2 tab, PO, Q4-6H, Pain, # 30 tab, 0 Refill(s) Active 07/23/2013 [facility] Ibuprofen 800 mg, Route: PO, Drug form: TAB, ONCE, Dosing Weight 105, kg, Priority: STAT, Start date: 07/22/13 18:12:00, Stop date: 07/22/13 18:12:00 Inactive 07/22/2013 [facility] Acetaminophen 325 MG / Hydrocodone Bitartrate 5 MG Oral Tablet [Emporium 5/325] 2 tab, Route: PO, Dosing Weight 105, kg, ONCE, Start date: 07/22/13 18:12:00, Stop date: 07/22/13 18:12:00, Inactive 07/22/2013 [facility] Benadryl 25 mg, 1 cap, Route: PO, Drug form: CAP, ONCE, Dosing Weight 105, kg, Priority: STAT, Start date: 09/08/12 22:26:00, Stop date: 09/08/12 22:26:00 PO No Longer Active [facility]son 09/09/2012 [facility] ibuprofen 800 mg, 1 tab, Route: PO, Drug form: TAB, ONCE, Dosing Weight 105, kg, Priority: STAT, Start date: 09/08/12 22:26:00, Stop date: 09/08/12 22:26:00 PO No Longer Active Jacobson 09/09/2012 [facility] Omnipaque 350mg/ml 145 mL, Route: IVP, Drug Form: SOLN, Dosing Weight 105, kg, ONCALL, STAT, Start date: 09/08/12 21:12:00, Duration: 1 doses or times, Stop date: 09/09/12 0:00:00, Dose=2.2ml/kg, Max [id number] -- " To be infused by Radiology Staff ONLY"Dose=2.2ml/kg, Max [id number] -- "To be infused by Radiology Staff ONLY" IVP No Longer Active Jacobson 09/09/2012 [facility] ondansetron 8 mg, Route: IVP, Drug form: INJ, ONCE, Dosing Weight 105, kg, Priority: STAT, Start date: 09/08/12 20:02:00, Stop date: 09/08/12 20:02:00 IVP No Longer Active Tonyaers 09/09/2012 [facility] Sodium Chloride 0.9% IV 1,000 mL 1,000 mL, Rate: 1000 ml/hr, Infuse over: 1 hr, Route: IV, Dosing Weight 105 kg, Total Volume: 1,000, Start date: 09/08/12 19:31:00, Duration: 1 doses or times, Stop date: 09/08/12 20:30:00 IV No Longer Active Jacobson 09/09/2012 [facility] Xanax 0.5 mg oral tablet 1 mg, 2 tab, PO, TID, PRN, 30 tab, Anxiety, Substitution Allowed PO Active 09/09/2012 [facility] Norvasc 10 mg oral tablet 10 mg, 1 tab, PO, BID, 30 tab, Substitution Allowed, TAB PO Active 09/09/2012 [facility] Combivent inhalation aerosol with adapter 2 puff, INHALER, QID, PRN, 14 gm, WHEEZING, Substitution Allowed, Maintenance INHALER Active 09/09/2012 [facility] ranitidine 150 mg oral tablet 150 mg, 1 tab, PO, BID, 6 tab, Substitution Allowed PO Active 09/09/2012 [facility] paroxetine 20 mg oral tablet 20 mg, 1 tab, PO, Daily, 30 tab, Substitution Allowed, TAB PO Active 09/09/2012 [facility] gabapentin 300 mg oral capsule 300 mg, 1 cap, PO, BID, 90 cap, Substitution Allowed PO Active 09/09/2012 [facility] Reglan 10 mg, 2 mL, Route: IVP, Drug form: INJ, ONCE, Dosing Weight 105, kg, Priority: STAT, Start date: 09/08/12 19:29:00, Stop date: 09/08/12 19:29:00 IVP No Longer Active Jacobson 09/09/2012 [facility] cyclobenzaprine 10 mg oral tablet 10 mg, 1 tab, PO, TID, PRN, 30 tab, for spasm, Substitution Allowed, TAB PO Active 09/09/2012 [facility] labetalol 300 mg oral tablet 300 mg, 1 tab, PO, BID, 180 tab, Substitution Allowed, TAB PO Active 09/09/2012 [facility] Keppra 500 mg oral tablet 500 mg, 1 tab, PO, BID, 120 tab, Substitution Allowed PO Active 09/09/2012 [facility] NS (Bolus) IV 1000 mL 1,000 mL, Rate: 1,000 ml/hr, Infuse over: 1 hr, Route: IV, Dosing Weight 105 kg, Total Volume: 1,000, Priority: STAT, Start date: 09/08/12 19:27:00, Duration: 1 doses or times, Stop date: 09/08/12 19:27:00 IV No Longer Active Jacobson 09/09/2012 [facility] Xigduo XR 1 tablet Orally Active 5-1000 MG Orally Once a day [facility] Etodolac 1 tablet with food Orally Active 400 MG Orally Twice a day as needed [facility] Alprazolam 1 tablet Orally Active 0.5 MG Orally Twice a day as needed [facility] Levetiracetam 1 tablet Orally Active 500 MG Orally As needed [facility] Rozerem 1 tablet at bedtime as needed Orally Active 8 MG Orally Once a day [facility] Advair Diskus 1 puff Inhalation Active 250-50 MCG/DOSE Inhalation Twice a day, as needed [facility] Losartan Potassium 1 tablet Orally Active 50 MG Orally Once a day [facility] Cyclobenzaprine HCl 1 tablet as needed Orally Active 10 MG Orally Three times a day [facility] Omeprazole 1 capsule Orally Active 40 MG Orally Once a day [facility] Amlodipine Besylate 10 Mg Tablet Daily Active [facility] Gabapentin (Neurontin) 300 Mg Capsule Twice A Day Active [facility] Hydrocodone Bit/Acetaminophen (Emporium 5-325 Tablet) 1 Each Tablet Three Times A Day Active [facility] Levetiracetam (Keppra) 500 Mg Tablet Twice A Day Active [facility] Lisinopril 10 Mg Tablet Twice A Day Active [facility] Allergies, Adverse Reactions, Alerts Substance Category Reaction Severity Reaction type Status Date Reported Comments Source PENICILLIN hives Intermediate Allergy to Substance Active 06/09/2014 [facility] Dilaudid Adverse Reaction Info Not Available Adverse Reaction Active 02/12/2017 [facility] pencillin Adverse Reaction Info Not Available Adverse Reaction Active 02/12/2017 [facility] Tramadol Adverse Reaction Info Not Available Adverse Reaction Active 02/12/2017 [facility] iodine hives Intermediate Allergy to Substance Active 12/25/2017 [facility] Hydromorphone vomit Intermediate Allergy to Substance Active 12/25/2017 [facility] penicillins Assertion Drug allergy Active [facility] traMADol Assertion Drug allergy Active [facility] Immunizations No Data Provided for This Section Results Order Name Results Value Reference Range Date Interpretation Comments Source Blood leukocytes automated count (number/volume) 7.89 4.8 - 10.8 06/08/2018 [facility] Blood erythrocytes automated count (number/volume) 5.05 3.6 - 5.1 06/08/2018 [facility] Blood hemoglobin measurement (moles/volume) 13.4 12.0 - 16.0 06/08/2018 [facility] Automated blood hematocrit (volume fraction) 41.9 34.2 - 44.1 06/08/2018 [facility] Automated erythrocyte mean corpuscular volume 83.0 81 - 99 06/08/2018 [facility] Automated erythrocyte mean corpuscular hemoglobin (mass per erythrocyte) 26.5 28 - 32 06/08/2018 [facility] Automated erythrocyte mean corpuscular hemoglobin concentration measurement (mass/volume) 32.0 31 - 35 06/08/2018 [facility] RDW BldCo-Rto 13.5 11.7 - 14.4 06/08/2018 [facility] Automated blood platelet count (count/volume) 114 140 - 360 06/08/2018 [facility] Automated blood segmented neutrophil count as percentage of total leukocytes 59.6 38.7 - 80.0 06/08/2018 [facility] Automated blood lymphocyte count as percentage ot total leukocytes 32.8 18.0 - 39.1 06/08/2018 [facility] Automated blood monocyte count as percentage of total leukocytes 5.4 4.4 - 11.3 06/08/2018 [facility] Automated blood eosinophil count as percentage of total leukocytes 1.6 0.0 - 6.0 06/08/2018 [facility] Automated blood basophil count as percentage of total leukocytes 0.3 0.0 - 1.0 06/08/2018 [facility] IM GRANULOCYTES % 0.3 0.0 - 1.0 06/08/2018 [facility] Automated blood neutrophil count 4.7 2.1 - 6.9 06/08/2018 [facility] Blood lymphocytes count (number/volume) 2.6 1.0 - 3.2 06/08/2018 [facility] Blood monocytes automated count (number/volume) 0.4 0.2 - 0.8 06/08/2018 [facility] Automated blood eosinophil count 0.1 0.0 - 0.4 06/08/2018 [facility] Automated blood basophil count (count/volume) 0.0 0.0 - 0.1 06/08/2018 [facility] Absolute Immature Granulocyte (auto 0.02 0 - 0.1 06/08/2018 [facility] Urine color determination YELLOW YELLOW 06/08/2018 [facility] Urine clarity SL CLOUDY CLEAR 06/08/2018 [facility] Specific gravity of Urine by Test strip 1.030 1.010 - 1.025 06/08/2018 [facility] Urine pH measurement by automated test strip 6 5 - 7 06/08/2018 [facility] Urine leukocyte esterase detection by dipstick NEGATIVE NEGATIVE 06/08/2018 [facility] Urine nitrite detection NEGATIVE NEGATIVE 06/08/2018 [facility] Urine protein measurement by test strip (mass/volume) NEGATIVE NEGATIVE 06/08/2018 [facility] Urine glucose detection 3+ NEGATIVE 06/08/2018 [facility] Urine ketones detection by automated test strip NEGATIVE NEGATIVE 06/08/2018 [facility] Urine urobilinogen measurement by test strip (mass/volume) 0.2 0.2 - 1 06/08/2018 [facility] Urine total bilirubin measurement (mass/volume) NEGATIVE NEGATIVE 06/08/2018 [facility] Urine erythrocytes detection NEGATIVE NEGATIVE 06/08/2018 [facility] Automated urine sediment leukocyte count by microscopy (number/high power field) 11-20 0 - 5 06/08/2018 [facility] Erythrocytes detection in urine sediment by light microscopy 0-5 0 - 5 06/08/2018 [facility] Bacteria detection in urine sediment by light microscopy MODERATE NONE 06/08/2018 [facility] Epithelial cells detection in urine sediment by light microscopy FEW NONE 06/08/2018 [facility] Mucus detection in urine sediment by light microscopy FEW RARE 06/08/2018 [facility] Serum or plasma sodium measurement (moles/volume) 140 136 - 145 06/08/2018 [facility] Serum or plasma potassium measurement (moles/volume) 3.8 3.5 - 5.1 06/08/2018 [facility] Serum or plasma chloride measurement (moles/volume) 104 98 - 107 06/08/2018 [facility] Serum or plasma carbon dioxide, total measurement (moles/volume) 25 22 - 29 06/08/2018 [facility] Serum or plasma anion gap 14.8 8 - 16 06/08/2018 [facility] Serum or plasma urea nitrogen measurement (mass/volume) 16 7 - 26 06/08/2018 [facility] Serum or plasma creatinine measurement (mass/volume) 0.85 0.57 - 1.11 06/08/2018 [facility] Serum or plasma urea nitrogen/creatinine mass ratio 19 6 - 25 06/08/2018 [facility] Estimated glomerular filtration rate (GFR) determination > 60 60 06/08/2018 [facility] Glucose measurement 142 74 - 118 06/08/2018 [facility] Serum or plasma calcium measurement (mass/volume) 9.2 8.4 - 10.2 06/08/2018 [facility] Serum or plasma total bilirubin measurement (mass/volume) 0.4 0.2 - 1.2 06/08/2018 [facility] Aspartate Amino Transf (AST/SGOT) 20 5 - 34 06/08/2018 [facility] Serum or plasma alanine aminotransferase measurement (enzymatic activity/volume) 26 0 - 55 06/08/2018 [facility] Serum or plasma protein measurement (mass/volume) 7.7 6.5 - 8.1 06/08/2018 [facility] Serum or plasma albumin measurement (mass/volume) 4.1 3.5 - 5.0 06/08/2018 [facility] Plasma globulin measurement (mass/volume) 3.6 2.3 - 3.5 06/08/2018 [facility] Serum or plasma albumin/globulin mass ratio 1.1 0.8 - 2.0 06/08/2018 [facility] Serum or plasma alkaline phosphatase measurement (enzymatic activity/volume) 120 40 - 150 06/08/2018 [facility] Serum or plasma amylase measurement (enzymatic activity/volume) 65 25 - 125 06/08/2018 [facility] Serum or plasma lipase measurement (enzymatic activity/volume) 69 8 - 78 06/08/2018 [facility] Prothrombin time (PT) in platelet poor plasma by coagulation assay 13.0 11.9 - 14.5 12/25/2017 [facility] INR in Platelet poor plasma by Coagulation assay 1.06 12/25/2017 [facility] Activated partial thromboplastin time (aPTT) in platelet poor plasma bycoagulation assay 26.9 23.8 - 35.5 12/25/2017 [facility] Serum or plasma creatine kinase measurement (enzymatic activity/volume) 89 29 - 168 12/25/2017 [facility] Serum or plasma creatine kinase MB measurement (mass/volume) 1.30 0 - 5.0 12/25/2017 [facility] Troponin I measurement by highly sensitive enzyme immunoassay < 0.001 0 - 0.300 12/25/2017 [facility] URINE AND STOOL UA Bili Small *ABN* (01/12/15 5:03 AM) Negative 01/12/2015 [facility] URINE AND STOOL UA Ketones Negative *NA* (01/12/15 5:03 AM) Negative 01/12/2015 [facility] URINE AND STOOL UA pH 6.0 5.0 - 8.0 01/12/2015 [facility] URINE AND STOOL UA Glucose >=1000 mg/dL Negative mg/dL 01/12/2015 [facility] URINE AND STOOL UA Protein Negative (01/12/15 5:03 AM) Negative 01/12/2015 [facility] URINE AND STOOL UA Leuk Est Negative (01/12/15 5:03 AM) Negative 01/12/2015 [facility] URINE AND STOOL UA Nitrite Negative (01/12/15 5:03 AM) Negative 01/12/2015 [facility] URINE AND STOOL UA Urobilinogen 0.2 0.1 - 1.0 01/12/2015 [facility] URINE AND STOOL UA Blood Negative (01/12/15 5:03 AM) Negative 01/12/2015 [facility] URINE AND STOOL UA Spec Grav 1.025 <=1.030 01/12/2015 [facility] URINE AND STOOL UA Turbidity Slight Cloudy (01/12/15 5:03 AM) Clear 01/12/2015 [facility] URINE AND STOOL UA Color Yellow *NA* (01/12/15 5:03 AM) Yellow 01/12/2015 [facility] URINE AND STOOL UA Bacteria Moderate /HPF None Seen /HPF 01/12/2015 [facility] URINE AND STOOL UA RBC 0-2 /HPF 0 - 2 01/12/2015 [facility] URINE AND STOOL UA WBC 0-2 /HPF None Seen /HPF 01/12/2015 [facility] URINE AND STOOL UA Sq Epi Moderate /LPF Few /LPF 01/12/2015 [facility] CHEM PANEL Amylase Lvl 49 25 - 115 01/12/2015 [facility] CHEM PANEL Lipase Lvl 354 73 - 393 01/12/2015 [facility] CHEM PANEL B/C Ratio 10 6 - 25 01/12/2015 [facility] CHEM PANEL AGAP 14.8 10.0 - 20.0 01/12/2015 [facility] CHEM PANEL A/G Ratio 0.9 0.7 - 1.6 01/12/2015 [facility] CHEM PANEL Globulin 4.6 2.0 - 4.0 01/12/2015 [facility] CHEM PANEL eGFR 54 01/12/2015 Result Comment: The eGFR is calculated using the [...] from the National Kidney Disease Education Program (NKDEP) which additionally recommends that when the eGFR is used in patients with extremes of body mass index for purposes of drug dosing, the eGFR should be multiplied by the estimated BMI. [facility] CHEM PANEL Glucose Lvl 261 70 - 99 01/12/2015 [facility] CHEM PANEL BUN 12 7 - 22 01/12/2015 [facility] CHEM PANEL Chloride Lvl 100 95 - 109 01/12/2015 [facility] CHEM PANEL Potassium Lvl 3.8 3.5 - 5.1 01/12/2015 [facility] CHEM PANEL Sodium Lvl 134 135 - 145 01/12/2015 [facility] CHEM PANEL Creatinine Lvl 1.2 0.5 - 1.4 01/12/2015 [facility] CHEM PANEL Calcium Lvl 9.2 8.5 - 10.5 01/12/2015 [facility] CHEM PANEL CO2 23 24 - 32 01/12/2015 [facility] CHEM PANEL Total Protein 8.6 6.4 - 8.4 01/12/2015 [facility] CHEM PANEL Albumin Lvl 4.0 3.5 - 5.0 01/12/2015 [facility] CHEM PANEL AST 38 0 - 37 01/12/2015 [facility] CHEM PANEL Bili Total 0.5 0.2 - 1.3 01/12/2015 [facility] CHEM PANEL Alk Phos 145 39 - 136 01/12/2015 [facility] CHEM PANEL ALT 52 0 - 65 01/12/2015 [facility] ENDOCRINOLOGY S Preg Negative (01/12/15 4:42 AM) Negative 01/12/2015 [facility] HEMATOLOGY Segs 61.7 45.0 - 75.0 01/12/2015 [facility] HEMATOLOGY Basophils 0.4 0.0 - 1.0 01/12/2015 [facility] HEMATOLOGY Eosinophils 1.9 0.0 - 4.0 01/12/2015 [facility] HEMATOLOGY Monocytes 5.8 2.0 - 12.0 01/12/2015 [facility] HEMATOLOGY Lymphocytes 30.2 20.0 - 40.0 01/12/2015 [facility] HEMATOLOGY Segs-Bands # 5.6 1.5 - 8.1 01/12/2015 [facility] HEMATOLOGY Eosinophils # 0.2 0.0 - 0.5 01/12/2015 [facility] HEMATOLOGY Monocytes # 0.5 0.0 - 0.8 01/12/2015 [facility] HEMATOLOGY Lymphocytes # 2.8 1.0 - 5.5 01/12/2015 [facility] HEMATOLOGY RDW 13.9 11.5 - 14.5 01/12/2015 [facility] HEMATOLOGY MPV 8.5 7.4 - 10.4 01/12/2015 [facility] HEMATOLOGY Platelet 164 133 - 450 01/12/2015 [facility] HEMATOLOGY RBC 5.28 4.20 - 5.40 01/12/2015 [facility] HEMATOLOGY Hgb 14.2 12.0 - 16.0 01/12/2015 [facility] HEMATOLOGY Hct 43.8 36.0 - 48.0 01/12/2015 [facility] HEMATOLOGY WBC 9.2 3.7 - 10.4 01/12/2015 [facility] HEMATOLOGY MCV 83.0 80.0 - 98.0 01/12/2015 [facility] HEMATOLOGY MCH 26.9 27.0 - 31.0 01/12/2015 [facility] HEMATOLOGY MCHC 32.4 32.0 - 36.0 01/12/2015 [facility] URINALYSIS UA Urobilinogen 0.2 0.1 - 1.0 09/09/2012 Normal [facility] URINALYSIS UA Blood Negative (09/08/2012 22:15:20) Negative 09/09/2012 Normal [facility] URINALYSIS UA Bili Negative *NA* (09/08/2012 22:15:20) Negative 09/09/2012 NA [facility] URINALYSIS UA Leuk Est Negative (09/08/2012 22:15:20) Negative 09/09/2012 Normal [facility] URINALYSIS UA Nitrite Negative (09/08/2012 22:15:20) Negative 09/09/2012 Normal [facility] URINALYSIS UA Ketones Negative mg/dL *NA* (09/08/2012 22:15:20) Negative 09/09/2012 NA [facility] URINALYSIS UA Glucose Negative mg/dL (09/08/2012 22:15:20) Negative 09/09/2012 Normal [facility] URINALYSIS UA Protein Negative mg/dL (09/08/2012 22:15:20) Negative 09/09/2012 Normal [facility] URINALYSIS UA pH 8.0 5.0 - 8.0 09/09/2012 Normal [facility] URINALYSIS UA Spec Grav 1.010 <=1.030 09/09/2012 Normal [facility] URINALYSIS UA Turbidity Clear (09/08/2012 22:15:20) Clear 09/09/2012 Normal [facility] URINALYSIS UA Color Yellow *NA* (09/08/2012 22:15:20) Yellow 09/09/2012 NA [facility] URINALYSIS Micro? Performed (09/08/2012 22:15:20) 09/09/2012 Normal [facility] URINALYSIS UA WBC 0-2 /HPF (09/08/2012 22:15:20) None Seen 09/09/2012 Normal [facility] URINALYSIS UA Sq Epi Moderate /LPF *ABN* (09/08/2012 22:15:20) Few 09/09/2012 ABN [facility] URINALYSIS UA Bacteria Few /HPF (09/08/2012 22:15:20) None Seen 09/09/2012 Normal [facility] URINALYSIS UA RBC 0-2 /HPF (09/08/2012 22:15:20) 0 - 2 09/09/2012 Normal [facility] BLOOD BANK RESULTS Antibody Scrn Negative (09/08/2012 20:07:00) 09/09/2012 Normal [facility] BLOOD BANK RESULTS ABO/Rh O POS 09/09/2012 Unknown [facility] Microbiology Culture: Blood 09/09/2012 [facility] Microbiology Culture: Blood 09/09/2012 [facility] CHEMISTRY Phosphorus 2.6 2.5 - 4.5 09/09/2012 Normal [facility] CHEMISTRY Magnesium Lvl 1.8 1.8 - 2.4 09/09/2012 Normal [facility] CHEMISTRY Lipase Lvl 133 73 - 393 09/09/2012 Normal [facility] CHEMISTRY Total Protein 7.4 6.4 - 8.4 09/09/2012 Normal [facility] CHEMISTRY Bili Total 0.5 0.2 - 1.3 09/09/2012 Normal [facility] CHEMISTRY Alk Phos 99 39 - 136 09/09/2012 Normal [facility] CHEMISTRY ALT 33 0 - 65 09/09/2012 Normal [facility] CHEMISTRY Albumin Lvl 4.0 3.5 - 5.0 09/09/2012 Normal [facility] CHEMISTRY AST 25 0 - 37 09/09/2012 Normal [facility] CHEMISTRY Bili Direct 0.1 0.0 - 0.3 09/09/2012 Normal [facility] CHEMISTRY Bili Indirect 0.4 0.0 - 1.0 09/09/2012 Normal [facility] CHEMISTRY A/G Ratio 1.2 0.7 - 1.6 09/09/2012 Normal [facility] CHEMISTRY Globulin 3.4 2.0 - 4.0 09/09/2012 Normal [facility] CHEMISTRY Lactic Acid Lvl 1.0 0.5 - 2.2 09/09/2012 Normal [facility] CHEMISTRY AGAP 14.0 10.0 - 20.0 09/09/2012 Normal [facility] CHEMISTRY eGFR 77 09/09/2012 NA <sup>1</sup>Result Comment: The eGFR is calculated using the CKD-EPI formula. In most young, healthy individuals the eGFR will be >90 mL/min/1.73m2. The eGFR declines with age. An eGFR of 60-89 may be normal in some populations, particularly the elderly, for whom the CKD-EPI formula has not been extensively validated. Use of the eGFR is not recommended in the following populations:& lt;br/>
Individuals with unstable creatinine concentrations, including patients and those with serious co-morbid conditions.

Patients with extremes in muscle mass or diet.

The data above are obtained from the National Kidney Disease Education Program (NKDEP) which additionally recommends that when the eGFR is used in patients with extremes of body mass index for purposes of drug dosing, the eGFR should be multiplied by the estimated BMI. [facility] CHEMISTRY Potassium Lvl 4.0 3.5 - 5.1 09/09/2012 Normal [facility] CHEMISTRY Chloride Lvl 102 95 - 109 09/09/2012 Normal [facility] CHEMISTRY CO2 28 24 - 32 09/09/2012 Normal [facility] CHEMISTRY Calcium Lvl 8.3 8.5 - 10.5 09/09/2012 LOW [facility] CHEMISTRY Glucose Lvl 145 70 - 99 09/09/2012 HI <sup>2</sup>Interpretive Data: Adult reference range values reflect the clinical guidelines
of the [place] [employer]. [facility] CHEMISTRY Creatinine Lvl 0.9 0.5 - 1.4 09/09/2012 Normal [facility] CHEMISTRY Sodium Lvl 140 135 - 145 09/09/2012 Normal [facility] CHEMISTRY BUN 12 7 - 22 09/09/2012 Normal [facility] HEMATOLOGY Stomatocyte Slight *ABN* (09/08/2012 20:00:00) None Seen 09/09/2012 ABN [facility] HEMATOLOGY Large Plt Slight *ABN* (09/08/2012 20:00:00) None Seen 09/09/2012 ABN [facility] HEMATOLOGY Toxic Gran Slight *ABN* (09/08/2012 20:00:00) None Seen 09/09/2012 ABN [facility] HEMATOLOGY Basophils # 0.0 0.0 - 0.2 09/09/2012 Normal [facility] HEMATOLOGY Anisocyte 1+ *ABN* (09/08/2012 20:00:00) None Seen 09/09/2012 ABN [facility] HEMATOLOGY Eosinophils # 0.1 0.0 - 0.5 09/09/2012 Normal [facility] HEMATOLOGY Monocytes 2.7 2.0 - 12.0 09/09/2012 Normal [facility] HEMATOLOGY Eosinophils 0.9 0.0 - 4.0 09/09/2012 Normal [facility] HEMATOLOGY Segs 89.4 45.0 - 75.0 09/09/2012 HI [facility] HEMATOLOGY Lymphocytes 6.8 20.0 - 40.0 09/09/2012 LOW [facility] HEMATOLOGY Lymphocytes # 0.5 1.0 - 5.5 09/09/2012 LOW [facility] HEMATOLOGY Monocytes # 0.2 0.0 - 0.8 09/09/2012 Normal [facility] HEMATOLOGY Basophils 0.2 0.0 - 1.0 09/09/2012 Normal [facility] HEMATOLOGY Segs-Bands # 6.4 1.5 - 8.1 09/09/2012 Normal [facility] HEMATOLOGY PTT 29.1 22.9 - 35.8 09/09/2012 Normal <sup>4</sup>Interpretive Data: Heparin Therapeutic Range: 57 - 92 Seconds [facility] HEMATOLOGY PT 13.6 12.0 - 14.7 09/09/2012 Normal [facility] HEMATOLOGY INR 1.02 0.85 - 1.17 09/09/2012 Normal <sup>3</sup>Interpretive Data: RECOMMENDED RANGES FOR PROTIME INR:
2.0-3.0 for most medical and surgical thromboembolic states.
2.5-3.5 for artificial heart valves and recurrent embolism.

INR SHOULD BE USED ONLY FOR PATIENTS ON STABLE ANTICOAGULANT THERAPY. [facility] HEMATOLOGY Platelet 130 133 - 450 09/09/2012 LOW [facility] HEMATOLOGY MPV 8.9 7.4 - 10.4 09/09/2012 Normal [facility] HEMATOLOGY Hct 37.6 36.0 - 48.0 09/09/2012 Normal [facility] HEMATOLOGY MCV 82.5 81.0 - 99.0 09/09/2012 Normal [facility] HEMATOLOGY MCH 27.4 27.0 - 31.0 09/09/2012 Normal [facility] HEMATOLOGY MCHC 33.2 32.0 - 36.0 09/09/2012 Normal [facility] HEMATOLOGY RDW 12.1 11.5 - 14.5 09/09/2012 Normal [facility] HEMATOLOGY WBC 7.2 3.7 - 10.4 09/09/2012 Normal [facility] HEMATOLOGY RBC 4.56 4.20 - 5.40 09/09/2012 Normal [facility] HEMATOLOGY Hgb 12.5 12.0 - 16.0 09/09/2012 Normal [facility] Pathology Reports No Data Provided for This Section Diagnostic Reports Report Value Date Source Brain wo contrast CT CT HEAD WITHOUT CONTRAST DATE: 07/21/2015 at 6:57 PM COMPARISON: 04/27/2015. HISTORY: Vomiting. TECHNIQUE: Contiguous axial images of the brain were obtained without intravenous contrast administration. Sagittal and coronal reformatted images were also provided. DLP: 935 mGy-cm. FINDINGS: There are no acute hemorrhages or acute infarcts. The santillan-white interfaces are well defined. There are no mass lesions or extra axial collections. There are no acute bony abnormalities. The calvarium is intact. A metallic coil mass is again noted in the region of the anterior communicating artery creating spray artifact. Fluid with small pockets of gas is noted within the right maxillary antrum consistent with inflammatory sinus disease. IMPRESSION: 1. No acute intracranial abnormality, normal CT scan of the brain. 2. 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 3. Fluid within the right maxillary antrum consistent with inflammatory sinus disease. Resident preliminary report by Dr. Yordy Rojas: No intracranial hemorrhage or hydrocephalus. Embolization coils again seen (prior ACOM aneurysm) R maxillary sinus high density fluid and gas. 07/21/2015 [facility] Brain wo contrast CT EXAM: CT BRAIN WITHOUT CONTRAST DATE: Apr 27, 2015 05:45:00 PM INDICATION: Headache with dizziness and giddiness COMPARISON: September 08, 2012 TECHNIQUE: Contiguous axial images of the brain are obtained from the skull base to the vertex without administration of intravenous contrast material. Bone and soft tissue algorithms are provided. FINDINGS: Artifact from the anterior communicating artery region embolization coils again obscures adjacent portions of the brain parenchyma. The appearance of the remainder of the brain parenchyma is unchanged. In particular, there has been no recent infarct. No intraparenchymal or extra- axial hemorrhage is evident. No mass or mass effect is seen. Incidental imaging of the orbits, paranasal sinuses, skull, and skull base also demonstrates no interval change. IMPRESSION: No recent infarct or hemorrhage. CT examination of the brain is unchanged. Resident PRELIMINARY REPORT: Creator:Robbie Cash Date:Apr 27, 2015 17:55:26 Subject: Embolization coils again seen (prior ACOM aneurysm) No intracranial hemorrhage or other acute abnormality. 04/27/2015 [facility] Abdomen AP DX EXAM: XR ABDOMEN 1 VIEW DATE: 01/12/2015 at 0451. INDICATION: abdominal pain COMPARISON: 09/08/2012 TECHNIQUE: Three AP views of the abdomen FINDINGS: Lower thorax is unremarkable where visualized. The bowel gas pattern is nonobstructive. Phleboliths are seen in the pelvis. Bilateral hip prosthesis noted. IMPRESSION: Unremarkable bowel gas pattern. 01/12/2015 [facility] Chest 2 views DX EXAM: XR CHEST 2 VIEWS DATE: January 11, 2015, 1953 hours INDICATION: Coughing COMPARISON: X-ray chest 1 view performed September 08, 2012 TECHNIQUE: Frontal and lateral chest radiographs DISCUSSION: No acute pulmonary or pleural based abnormality is identified. Pulmonary vascularity is normal. The cardiomediastinal silhouette is normal. No pleural effusions or pneumothorax. No acute bony abnormality is identified. IMPRESSION: No acute radiographic abnormality 01/11/2015 [facility] Hip min 2 views EXAM: XR LEFT HIP 2 VIEWS AND AP PELVIS DATE: 2013-07-22 1613 hours INDICATION: Pain and swelling COMPARISON: None available. TECHNIQUE: AP and frogleg lateral radiographs of the left hip and a single AP radiograph of the pelvis FINDINGS: No fracture, dislocation or other acute bony abnormality is identified. There is bilateral developed mental hip dysplasia with secondary osteoarthrosis, moderate to severe on the left and moderate on the right, with subchondral cystic change and reactive osteophyte formation. The pubic symphysis and sacroiliac joints are unremarkable. IMPRESSION: Bilateral developmental hip dysplasia, with secondary osteoarthrosis, left greater than right. 07/22/2013 [facility] Head/Neck CTA CT ANGIOGRAM OF THE HEAD AND NECK DATE: 09/08/2012 at 9:28 p.m. CLINICAL INFORMATION: Vomiting. TECHNIQUE: Axial images were obtained from the vertex through the upper thorax at 1.5 mm intervals in the enhanced mode. 3-D maximum intensity projection, MIP images were also created. FINDINGS: There is normal contrast-enhancement of the aortic arch and proximal great vessels. The right and left common carotid arteries arise from a common trunk, a bovine type origin, a normal variant. There are no proximal stenoses. There is normal contrast-enhancement of the bilateral common, internal, and external carotid arteries. There is no carotid bifurcation stenosis. There is normal contrast-enhancement of the bilateral vertebral arteries. Intracranially there is normal contrast-enhancement of the bilateral intracranial internal carotid arteries, the bilateral distal vertebral arteries, and the basilar artery. A metallic coil mass is noted within the region of the anterior communicating artery creating spray artifact partially degrading the images. There is no evidence of residual recurrent aneurysm. No other aneurysms or vascular malformations are noted. There is normal contrast enhancement of the the bilateral anterior, middle, and posterior cerebral arteries. There is normal contrast-enhancement of the superior cerebellar, anterior/inferior cerebellar, and posterior inferior cerebellar arteries bilaterally. There no intracranial branch occlusions. There is normal contrast-enhancement of the venous structures. IMPRESSION: 1. Normal cervical CT angiogram no evidence of carotid bifurcation stenosis. 2. 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 3. Otherwise normal intracranial CT angiogram. There is no residual or recurrent aneurysm. There are no intracranial branch occlusions. 09/08/2012 [facility] Abdomen/Pelvis w contrast CT Of the abdomen and pelvis with contrast dated 09/08/2012. HISTORY: Acute abdominal pain. COMPARISON: 02/19/2006. TECHNIQUE: Postcontrast (venous and delayed phases) images were acquired from the lung bases to the pubic symphysis after oral contrast administration. Sagittal and coronal reformats were reviewed. FINDINGS: The lung bases are unremarkable. No pleural or pericardial effusions are seen. The liver is enlarged at 20 cm and shows markedly steatotic appearances without focal lesions. The gallbladder is surgically absent, there is no biliary dilatation. Both kidneys, adrenals and pancreas are unremarkable. A borderline sized spleen is noted at 13.5 cm. Delayed images show satisfactory bilateral renal excretion with unremarkable appearances of the opacified collecting systems and the urinary bladder. The uterus and adnexa are within normal limits. The stomach and visualized bowel are within normal limits. The appendix is not clearly visualized, although there are no secondary features to suggest acute appendicitis. There is no abdominopelvic or inguinal adenopathy. No free fluid or focal collections are seen. There are no acute skeletal findings. Marked degenerative changes are noted at bilateral hip joints. Bilateral L5/S1 pars defects are noted with grade 1 spondylolisthesis. IMPRESSION: 1. No acute abdominopelvic findings noted. 2. Enlarged, steatotic liver. A borderline sized spleen is noted. 3. L5/S1 pars defects with grade 1 spondylolisthesis. Marked bilateral hip joint degenerative changes noted. 09/08/2012 [facility] Brain wo contrast CT CT SCAN OF THE BRAIN DATE: 09/08/2012 at 9:25 p.m. Comparison studies: MRI brain 10/10/2006. CLINICAL INFORMATION: Head trauma. TECHNIQUE: Routine axial images of the brain were obtained in the unenhanced mode. FINDINGS: The brain is morphologically normal. A metallic coil mass is noted in the region of the anterior communicating artery creating spray artifact, consistent with embolic coiling of an anterior communicating artery aneurysm. There are no acute hemorrhages or infarcts. The santillan/white interfaces are well defined. There are no mass lesions or extra-axial collections. There are no acute bony abnormalities. The calvarium is intact. IMPRESSION: 1. 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 2. No acute intracranial abnormality, otherwise normal CT scan of the brain. 09/08/2012 [facility] Chest 1view EXAM: CHEST 1 VIEW. DATE: September 08, 2012 07:47 PM. INDICATION: Chest pain. COMPARISON: None. TECHNIQUE: An AP view of the chest was obtained. FINDINGS: The lungs are clear. The costophrenic sulci are sharp. The cardiomediastinal silhouette is unremarkable. The bones and soft tissues are unremarkable. IMPRESSION: No acute cardiopulmonary disease. 09/08/2012 [facility] Consultation Notes No Data Provided for This Section Discharge Summaries No Data Provided for This Section History and Physicals No Data Provided for This Section Vital Signs Vital Sign Value Date Comments Source Weight 236 02/12/2017 [facility] Height 62 02/12/2017 [facility] Heart Rate 70 02/12/2017 [facility] Diastolic (mm Hg) 86 02/12/2017 [facility] Systolic (mm Hg) 124 02/12/2017 [facility] Respitory Rate 18 07/22/2015 [facility] Systolic (mm Hg) 141 07/22/2015 [facility] Diastolic (mm Hg) 84 07/22/2015 [facility] Temperature Oral (F) 98.2 F 07/22/2015 [facility] Heart Rate 64 07/22/2015 [facility] BMI Calculated 43.62 07/21/2015 [facility] Weight 108.182 07/21/2015 [facility] Height 157.48 cm 07/21/2015 [facility] Systolic (mm Hg) 148 07/21/2015 [facility] Diastolic (mm Hg) 90 07/21/2015 [facility] Respitory Rate 20 07/21/2015 [facility] Heart Rate 72 07/21/2015 [facility] Temperature Oral (F) 97.8 F 07/21/2015 [facility] Systolic (mm Hg) 148 05/09/2015 [facility] Diastolic (mm Hg) 79 05/09/2015 [facility] Temperature Oral (F) 97.2 F 05/09/2015 [facility] Respitory Rate 17 05/09/2015 [facility] Temperature Oral (F) 96.7 F 05/08/2015 [facility] Heart Rate 65 05/08/2015 [facility] Respitory Rate 18 05/08/2015 [facility] Systolic (mm Hg) 156 05/08/2015 [facility] Diastolic (mm Hg) 72 05/08/2015 [facility] Systolic (mm Hg) 165 05/08/2015 [facility] Diastolic (mm Hg) 82 05/08/2015 [facility] Respitory Rate 18 05/08/2015 [facility] Heart Rate 65 05/08/2015 [facility] Temperature Oral (F) 98.4 F 05/08/2015 [facility] Heart Rate 74 04/28/2015 [facility] Temperature Oral (F) 98 F 04/28/2015 [facility] Respitory Rate 18 04/28/2015 [facility] Systolic (mm Hg) 134 04/28/2015 [facility] Diastolic (mm Hg) 78 04/28/2015 [facility] Systolic (mm Hg) 125 04/28/2015 [facility] Diastolic (mm Hg) 66 04/28/2015 [facility] Respitory Rate 16 04/28/2015 [facility] Heart Rate 78 04/28/2015 [facility] BMI Calculated 45.64 04/27/2015 [facility] Weight 113.182 04/27/2015 [facility] Height 157.48 cm 04/27/2015 [facility] Respitory Rate 20 04/27/2015 [facility] Heart Rate 81 04/27/2015 [facility] Systolic (mm Hg) 136 04/27/2015 [facility] Diastolic (mm Hg) 82 04/27/2015 [facility] Temperature Oral (F) 98.1 F 04/27/2015 [facility] Temperature Oral (F) 98.3 F 01/12/2015 [facility] Systolic (mm Hg) 154 01/12/2015 [facility] Diastolic (mm Hg) 76 01/12/2015 [facility] Respitory Rate 18 01/12/2015 [facility] Temperature Oral (F) 98.6 F 01/12/2015 [facility] Systolic (mm Hg) 144 01/12/2015 [facility] Diastolic (mm Hg) 80 01/12/2015 [facility] Respitory Rate 20 01/12/2015 [facility] Systolic (mm Hg) 170 01/12/2015 [facility] Diastolic (mm Hg) 95 01/12/2015 [facility] Respitory Rate 18 01/12/2015 [facility] Heart Rate 98 01/12/2015 [facility] Temperature Oral (F) 99.0 F 01/12/2015 [facility] Heart Rate 111 01/12/2015 [facility] Heart Rate 105 01/12/2015 [facility] Systolic (mm Hg) 140 07/23/2013 [facility] Heart Rate 78 07/23/2013 [facility] Diastolic (mm Hg) 78 07/23/2013 [facility] Respitory Rate 18 07/23/2013 [facility] BMI Calculated 42.34 07/22/2013 [facility] Weight 105 07/22/2013 [facility] Height 157.48 cm 07/22/2013 [facility] Systolic (mm Hg) 147 07/22/2013 [facility] Diastolic (mm Hg) 88 07/22/2013 [facility] Respitory Rate 16 07/22/2013 [facility] Temperature Oral (F) 98.6 F 07/22/2013 [facility] Heart Rate 86 07/22/2013 [facility] Weight 105 09/08/2012 [facility] Height 157.48 cm 09/08/2012 [facility] Encounters Location Location Details Encounter Type Encounter Number Reason For Visit Attending Provider ADM Date DC Date Status Source [facility] Emergency [id number] BRENDNE BANKS 09/08/2012 09/09/2012 Discharged [facility] [id number] _[id number] Roland Zuleta 07/22/2013 07/23/2013 [facility] [id number] Tarsha Luzma 01/11/2015 01/12/2015 [facility] [id number] Tarsha Luzma 04/27/2015 04/28/2015 [facility] [id number] Tarsha Luzma 05/08/2015 05/09/2015 [facility] [id number] Tarsha Luzma 07/21/2015 07/22/2015 [facility] Departed Emergency Room [id number] BELLA NEELY MD 12/25/2017 12/25/2017 [facility] Departed Emergency Room [id number] JUAN ANTONIO TORRES MD 06/08/2018 06/09/2018 [facility] Procedures Procedure Code Date Perfomer Comments Source CT of abdomen and pelvis without contrast [id number] 06/09/2018 TORRES [facility] Computed tomography angiography of brain [id number] 12/25/2017 [facility] Hip replacement<sup>1</sup> [id number] Bilateral [facility] Assessment and Plan No Data Provided for This Section Plan of Care Plan of Care Date Source Discharge Date 06/09/18 1:59am Disposition HOME, SELF-CARE Condition at Discharge Stable Instructions/Education Provided Urinary Tract Infection - Women Forms Provided Work/School Excuse Prescriptions See Medication Section Referrals MINOR ELENA MD Order Date: Call for an appointment Address: [address] [place] [id number] Additional Instructions/Education follow-up with your pcp if not better rx macrobid pyridium 06/09/2018 [facility] Social History Social History Date Source Smoking Status Start Date Stop Date Never Smoker 06/09/2018 [facility] Social History TypeResponse Substance Abuse Use: None. Alcohol Past Smoking Status Former smoker; Type: Cigarettes; Exposure to Tobacco Smoke None; Cigarette Smoking Last 365 Days No; Reg Smoking Cessation Counseling No 01/12/2015 [facility] Family History No Data Provided for This Section Advance Directives Order Name Results Value Date Source Advance Directives Advance Directives Directive Response Recorded Date/Time Does the patient have an advance directive? No 10/31/07 5:47pm Do you have a Directive to Physician? No 06/08/18 11:13pm Do you have a Medical Power of Electrical Contacts Adjuster? No 06/08/18 11:13pm Do you have an out of hospital Do Not Resuscitate Order? No 06/08/18 11:13pm Do you have any special needs we should be aware of? No 06/08/18 11:13pm Do you have a support person here with you today? Yes 06/08/18 11:13pm Did patient receive Notice of Privacy Practices? Yes 06/08/18 11:13pm Did patient receive patient rights and responsibilities? Yes 06/08/18 11:13pm 06/09/2018 [facility] Functional Status No Data Provided for This Section
--- OUTSIDE RECORDS SUMMARY | 2019-01-15 19:59 | XMS REPORT | Summary of Care ---
Author Author [facility] Organization [facility] Address Unknown Phone Unavailable Encounter SHIRA Matt(PIERRE) [id number] Date(s): 01/11/15 - 01/12/15 [facility] [address] provided by [employer] [facility] [employer] [place] [address]- Discharge Diagnosis: Abdominal pain Discharge Disposition: Home Attending Physician: Tarsha Segal MD Vital Signs 1 2 3 Most recent to oldest [Reference Range]: 98.3 DegF (01/12/15 7:22 AM) 98.6 DegF (01/12/15 6:21 AM) 99.0 DegF (01/11/15 10:17 PM) Temperature Oral [96.4-99.1 DegF] 1 2 3 Most recent to oldest [Reference Range]: 154/76 mmHg *HI* (01/12/15 7:22 AM) 144/80 mmHg *HI* (01/12/15 6:21 AM) 170/95 mmHg *HI* (01/12/15 4:33 AM) Blood Pressure [90-140/60-90 mmHg] 1 2 3 Most recent to oldest [Reference Range]: 18 BRMIN (01/12/15 7:22 AM) 20 BRMIN (01/12/15 6:21 AM) 18 BRMIN (01/12/15 4:33 AM) Respiratory Rate [14-20 BRMIN] 1 2 3 Most recent to oldest [Reference Range]: 98 bpm (01/12/15 4:33 AM) 111 bpm *HI* (01/11/15 10:17 PM) 105 bpm *HI* (01/11/15 8:21 PM) Peripheral Pulse Rate [60-100 bpm] Problem List Condition Effective Dates Status Health Status Informant Aneurysm(Confirmed)1 Resolved Fracture(Confirmed) Resolved HTN - Resolved Hypertension(Confirm ed) 1Cerebral aneurysm Allergies, Adverse Reactions, Alerts Substance Reaction Severity Status Dilaudid Active iodine Active penicillins Active Medications GI cocktail 30 mL, Route: PO, Drug Form: SUSP, Dosing Weight 105, kg, ONCE, STAT, Start date : 01/12/15 4:23:00, Stop date: 01/12/15 4:23:00 Notes: G.I. Cocktail=antacid with simethicone 22.5 mL - lidocaine viscous 7.5 mL Start Date: 01/12/15 Stop Date: 01/12/15 Status: Completed lisinopril 20 mg, Route: PO, ONCE, Dosing Weight 105, kg, Priority: STAT, Start date: 01/12 4:33:00, Stop date: 01/12/15 4:33:00 Start Date: 01/12/15 Stop Date: 01/12/15 Status: Completed morphine Sulfate 4 mg, 1 mL, Route: IVP, Drug form: INJ, ONCE, Dosing Weight 105, kg, Priority: S TAT, Start date: 01/12/15 4:23:00, Stop date: 01/12/15 4:23:00 Notes: (Same as:MORPhine Sulfate) Start Date: 01/12/15 Stop Date: 01/12/15 Status: Completed ondansetron 4 mg, Route: IVP, Drug form: INJ, ONCE, Dosing Weight 105, kg, Priority: STAT, S tart date: 01/12/15 5:19:00, Stop date: 01/12/15 5:19:00 Start Date: 01/12/15 Stop Date: 01/12/15 Status: Completed ondansetron 4 mg, 2 mL, Route: IVP, Drug form: INJ, ONCE, Dosing Weight 105, kg, Priority: S TAT, Start date: 01/12/15 4:23:00, Stop date: 01/12/15 4:23:00 Notes: (Same as: Ramila) MEDICATION WASTE Product Size: 4 mgProduct Was harshil: ___ mg Start Date: 01/12/15 Stop Date: 01/12/15 Status: Completed Saline Flush 0.9% 10 mL, Route: IVP, Drug Form: INJ, Dosing Weight 105, kg, PRN, PRN Line Flush, S tart date: 01/12/15 4:23:00, Duration: 30 day, Stop date: 02/11/15 4:22:00 Notes: Same as: BD Posiflush Sterile Start Date: 01/12/15 Stop Date: 01/12/15 Status: Discontinued tramadol 100 mg oral tablet, extended release 100 mg=1 tab, PO, Daily, # 30 tab, 0 Refill(s) Start Date: 01/12/15 Status: Ordered Tylenol with Codeine #3 oral tablet 1 - 2 tab, PO, Q6H, PRN Pain, X 4 day, # 32 tab, 0 Refill(s) Start Date: 01/12/15 Stop Date: 01/16/15 Status: Ordered Zofran 4 mg oral tablet 4 mg=1 tab, PO, Q6H, PRN Nausea/Vomiting, X 8 day, # 30 tab, 0 Refill(s) Start Date: 01/12/15 Stop Date: 01/20/15 Status: Ordered Results ELECTROLYTES Most recent to 1 oldest [Reference Range]: Sodium Lvl [135-145 134 mEq/L mEq/L] *LOW* (01/12/15 4:42 AM) Potassium Lvl 3.8 mEq/L [3.5-5.1 mEq/L] (01/12/15 4:42 AM) Chloride Lvl [95-109 100 mEq/L mEq/L] (01/12/15 4:42 AM) CO2 [24-32 mEq/L] 23 mEq/L *LOW* (01/12/15 4:42 AM) AGAP [10.0-20.0 14.8 mEq/L mEq/L] (01/12/15 4:42 AM) CHEM PANEL Most recent to 1 oldest [Reference Range]: Creatinine Lvl 1.2 mg/dL [0.5-1.4 mg/dL] (01/12/15 4:42 AM) eGFR 54 mL/min/1.73m2 1 *NA* (01/12/15 4:42 AM) BUN [7-22 mg/dL] 12 mg/dL (01/12/15 4:42 AM) B/C Ratio [6-25] 10 (01/12/15 4:42 AM) Glucose Lvl [70-99 261 mg/dL mg/dL] *HI* (01/12/15 4:42 AM) Total Protein 8.6 g/dL [6.4-8.4 g/dL] *HI* (01/12/15 4:42 AM) Albumin Lvl [3.5-5.0 4.0 g/dL g/dL] (01/12/15 4:42 AM) Globulin [2.0-4.0 4.6 g/dL g/dL] *HI* (01/12/15 4:42 AM) A/G Ratio [0.7-1.6] 0.9 (01/12/15 4:42 AM) Calcium Lvl 9.2 mg/dL [8.5-10.5 mg/dL] (01/12/15 4:42 AM) ALT [0-65 unit/L] 52 unit/L (01/12/15 4:42 AM) AST [0-37 unit/L] 38 unit/L *HI* (01/12/15 4:42 AM) Alk Phos [39-136 145 unit/L unit/L] *HI* (01/12/15 4:42 AM) Bili Total [0.2-1.3 0.5 mg/dL mg/dL] (01/12/15 4:42 AM) Amylase Lvl [25-115 49 unit/L unit/L] (01/12/15 4:42 AM) Lipase Lvl [73-393 354 unit/L unit/L] (01/12/15 4:42 AM) 1Result Comment: The eGFR is calculated using [...] be mul tiplied by the estimated BMI. ENDOCRINOLOGY Most recent to 1 oldest [Reference Range]: S Preg [Negative] Negative (01/12/15 4:42 AM) URINE AND STOOL Most recent to 1 oldest [Reference Range]: UA Turbidity [Clear] Slight Cloudy (01/12/15 5:03 AM) UA Color [Yellow] Yellow *NA* (01/12/15 5:03 AM) UA pH [5.0-8.0] 6.0 (01/12/15 5:03 AM) UA Spec Grav 1.025 [<=1.030] (01/12/15 5:03 AM) UA Glucose [Negative >=1000 mg/dL mg/dL] *ABN* (01/12/15 5:03 AM) UA Blood [Negative] Negative (01/12/15 5:03 AM) UA Ketones Negative [Negative] *NA* (01/12/15 5:03 AM) UA Protein Negative [Negative] (01/12/15 5:03 AM) UA Urobilinogen 0.2 EU/dL [0.1-1.0 EU/dL] (01/12/15 5:03 AM) UA Bili [Negative] Small *ABN* (01/12/15 5:03 AM) UA Leuk Est Negative [Negative] (01/12/15 5:03 AM) UA Nitrite Negative [Negative] (01/12/15 5:03 AM) UA WBC [None Seen 0-2 /HPF /HPF] (01/12/15 5:03 AM) UA RBC [0-2 /HPF] 0-2 /HPF (01/12/15 5:03 AM) UA Bacteria [None Moderate /HPF Seen /HPF] (01/12/15 5:03 AM) UA Sq Epi [Few /LPF] Moderate /LPF *ABN* (01/12/15 5:03 AM) HEMATOLOGY Most recent to 1 oldest [Reference Range]: WBC [3.7-10.4 K/CMM] 9.2 K/CMM (01/12/15 4:42 AM) RBC [4.20-5.40 5.28 M/CMM M/CMM] (01/12/15 4:42 AM) Hgb [12.0-16.0 g/dL] 14.2 g/dL (01/12/15 4:42 AM) Hct [36.0-48.0 %] 43.8 % (01/12/15 4:42 AM) MCV [80.0-98.0 fL] 83.0 fL (01/12/15 4:42 AM) MCH [27.0-31.0 pg] 26.9 pg *LOW* (01/12/15 4:42 AM) MCHC [32.0-36.0 32.4 g/dL g/dL] (01/12/15 4:42 AM) RDW [11.5-14.5 %] 13.9 % (01/12/15 4:42 AM) Platelet [133-450 164 K/CMM K/CMM] (01/12/15 4:42 AM) MPV [7.4-10.4 fL] 8.5 fL (01/12/15 4:42 AM) Segs [45.0-75.0 %] 61.7 % (01/12/15 4:42 AM) Lymphocytes 30.2 % [20.0-40.0 %] (01/12/15 4:42 AM) Monocytes [2.0-12.0 5.8 % %] (01/12/15 4:42 AM) Eosinophils [0.0-4.0 1.9 % %] (01/12/15 4:42 AM) Basophils [0.0-1.0 0.4 % %] (01/12/15 4:42 AM) Segs-Bands # 5.6 K/CMM [1.5-8.1 K/CMM] (01/12/15 4:42 AM) Lymphocytes # 2.8 K/CMM [1.0-5.5 K/CMM] (01/12/15 4:42 AM) Monocytes # [0.0-0.8 0.5 K/CMM K/CMM] (01/12/15 4:42 AM) Eosinophils # 0.2 K/CMM [0.0-0.5 K/CMM] (01/12/15 4:42 AM) Immunizations No data available for this section [...]
--- OUTSIDE RECORDS SUMMARY | 2019-01-15 19:59 | XMS REPORT | Summary of Care ---
Author Author [facility] Organization [facility] Address Unknown Phone Unavailable Encounter SHIRA Matt(PIERRE) [id number] Date(s): 04/27/15 - 04/27/[address] [facility] [address] provided by [employer] [place] [address]- Discharge Diagnosis: Headache Discharge Disposition: Home Attending Physician: Tarsha Segal MD Vital Signs 1 2 3 Most recent to oldest [Reference Range]: 157.48 cm (04/27/15 4:40 PM) Height 98 DegF (04/27/15 8:33 PM) 98.1 DegF (04/27/15 4:40 PM) Temperature Oral [96.4-99.1 DegF] 134/78 mmHg (04/27/15 8:33 PM) 125/66 mmHg (04/27/15 7:33 PM) 136/82 mmHg (04/27/15 4:40 PM) Blood Pressure [90-140/60-90 mmHg] 18 BRMIN (04/27/15 8:33 PM) 16 BRMIN (04/27/15 7:33 PM) 20 BRMIN (04/27/15 4:40 PM) Respiratory Rate [14-20 BRMIN] 74 bpm (04/27/15 8:33 PM) 78 bpm (04/27/15 7:33 PM) 81 bpm (04/27/15 4:40 PM) Peripheral Pulse Rate [60-100 bpm] 113.182 kg (04/27/15 4:40 PM) Weight 45.64 m2 (04/27/15 4:40 PM) Body Mass Index Problem List Condition Effective Dates Status Health Status Informant Aneurysm(Confirmed)1 Resolved Fracture(Confirmed) Resolved HTN - Resolved Hypertension(Confirm ed) 1Cerebral aneurysm Allergies, Adverse Reactions, Alerts Substance Reaction Severity Status Dilaudid Active iodine Active penicillins Active traMADol Active Medications acetaminophen 1,000 mg, Route: PO, Drug form: TAB, ONCE, Dosing Weight 113.182, kg, Priority: STAT, Start date: 04/27/15 19:48:00, Stop date: 04/27/15 19:48:00 Start Date: 04/27/15 Stop Date: 04/27/15 Status: Completed Benadryl 25 mg, Route: PO, Drug form: CAP, ONCE, Dosing Weight 113.182, kg, Priority: STA T, Start date: 04/27/15 19:45:00, Stop date: 04/27/15 19:45:00 Start Date: 04/27/15 Stop Date: 04/27/15 Status: Completed ketOROLAC 30 mg, Route: IVP, Drug form: INJ, ONCE, Dosing Weight 113.182, kg, Priority: ST AT, Start date: 04/27/15 18:43:00, Stop date: 04/27/15 18:43:00 Start Date: 04/27/15 Stop Date: 04/27/15 Status: Completed Motrin 800 mg, 1 tab, Route: PO, Drug form: TAB, ONCE, Dosing Weight 113.182, kg, Prior ity: STAT, Start date: 04/27/15 17:56:00, Stop date: 04/27/15 17:56:00 Notes: (Same as: Motrin)"Do Not Crush" Take with food. Start Date: 04/27/15 Stop Date: 04/27/15 Status: Completed NS (Bolus) IV 1,000 mL, 1,000 ml/hr, Infuse Over: 1 hr, Route: IV, ONCE, Priority: STAT, Dosin g Weight 113.182 kg, Start date: 04/27/15 17:26:00, Duration: 1 doses or times, Stop date: 04/27/15 17:26:00 Start Date: 04/27/15 Stop Date: 04/27/15 Status: Completed Reglan 10 mg, Route: IVP, Drug form: INJ, ONCE, Dosing Weight 113.182, kg, Priority: ST AT, Start date: 04/27/15 17:26:00, Stop date: 04/27/15 17:26:00 Start Date: 04/27/15 Stop Date: 04/27/15 Status: Discontinued Reglan 10 mg, Route: IVP, Drug form: INJ, ONCE, Dosing Weight 113.182, kg, Priority: ST AT, Start date: 04/27/15 19:45:00, Stop date: 04/27/15 19:45:00 Start Date: 04/27/15 Stop Date: 04/27/15 Status: Completed Valium 5 mg, Route: IVP, Drug form: INJ, ONCE, Dosing Weight 113.182, kg, Priority: STA T, Start date: 04/27/15 17:46:00, Stop date: 04/27/15 17:46:00 Start Date: 04/27/15 Stop Date: 04/27/15 Status: Completed Results No data available for [...]
--- OUTSIDE RECORDS SUMMARY | 2019-01-15 20:00 | XMS REPORT ---
Author Author Jorden Iqbal Organization [employer] Address Unknown Phone Unavailable Care Team Providers Care Online Activist Name Role Phone Jorden Iqbal CP Unavailable Allergies, Adverse Reactions, Alerts Substance Reaction Event Type pencillin Info Not Available Drug Allergy Tramadol Info Not Available Drug Allergy Dilaudid Info Not Available Drug Allergy Problems Problem Type Condition Code Onset Dates Condition Status Assessment Dizziness R42 Active Problem HTN (hypertension), benign I10 Active Problem Brain aneurysm I67.1 Active Problem Type 2 diabetes mellitus with diabetic nephropathy, unspecified terminal make up operator insulin use status E11.21 Active Assessment HTN (hypertension), benign I10 Active Assessment Brain aneurysm I67.1 Active Assessment Encounter for pre-operative cardiovascular clearance Z01.810 Active Assessment Type 2 diabetes mellitus with diabetic nephropathy, unspecified terminal make up operator insulin use status E11.21 Active Medications Medication Code System Code Instructions Start Date End Date Status Dosage Xigduo XR [facility] [address]-01 5-1000 MG Orally Once a day Active 1 tablet Etodolac [facility] [address]-62 400 MG Orally Twice a day as needed Active 1 tablet with food Alprazolam [facility] [address]-70 0.5 MG Orally Twice a day as needed Active 1 tablet Levetiracetam [facility] [address]-96 500 MG Orally As needed Active 1 tablet Rozerem [facility] [address]-38 8 MG Orally Once a day Active 1 tablet at bedtime as needed Advair Diskus [facility] [address]-96 250-50 MCG/DOSE Inhalation Twice a day, as needed Active 1 puff Losartan Potassium [facility] [address]-09 50 MG Orally Once a day Active 1 tablet Cyclobenzaprine HCl [facility] [address]-42 10 MG Orally Three times a day Active 1 tablet as needed Omeprazole [facility] [address]-27 40 MG Orally Once a day Active 1 capsule Vital Signs Date/Time: Feb 12, 2017 BMI 43.16 Index Weight 236 lbs Height 62 in Cardiac Monitoring Heart Rate 70 /min Blood Pressure Diastolic 86 mm Hg Blood Pressure Systolic 124 mm Hg Results No Known Results Summary Purpose [employer] Submission
[2019-01-15] MEDS ORDERED: ASPIRIN 81 MG CHEW TAB PO ONE (20:15)
[2019-01-15] MEDS ORDERED: ACETAMINOPHEN 325 MG TAB PO PRN (20:45)
--- NOTE | 2019-01-15 20:51 | Diagnostic Imaging Report ---
EXAMINATION: CHEST SINGLE (PORTABLE) INDICATION: Left chest pain ^ERMD ORDER ^[id number] ^2039 ^Y COMPARISON: None FINDINGS: TUBES and LINES: None. LUNGS: Lungs are well inflated. Lungs are clear. There is no evidence of pneumonia or pulmonary edema. PLEURA: No pleural effusion or pneumothorax. HEART AND MEDIASTINUM: The cardiomediastinal silhouette is unremarkable. BONES AND SOFT TISSUES: No acute osseous lesion. Soft tissues are unremarkable. UPPER ABDOMEN: No free air under the diaphragm. IMPRESSION: No acute thoracic abnormality. Signed by: Dr. Saran Lowry M.D. on 01/15/2019 8:47 PM
[2019-01-15] MEDS ORDERED: SODIUM CHLORIDE 0.9% 1000ML 1,000 ML IV SCH (21:15)
[2019-01-15] MEDS ORDERED: ONDANSETRON HCL INJ 2MG/ML 2ML 2 MG/ML VIAL IV ONE (21:37)
[2019-01-15] MEDS ORDERED: MORPHINE SULFATE INJ 4 MG/ML INJ 1ML IV PRN (21:45)
[2019-01-15 21:46] LABS: BASOPHILS % 0.2 % (0.0-1.0); EOSINOPHILS % 0.2 % (0.0-6.0); HEMATOCRIT 40.7 % (34.2-44.1); HEMOGLOBIN 13.4 g/dL (12.0-16.0); LYMPHOCYTES # (AUTO) 0.8 (1.0-3.2); LYMPHOCYTES % 18.1 % (18.0-39.1); MEAN CORPUSCULAR HEMOGLOBIN 26.9 pg (28-32); MEAN CORPUSCULAR HGB CONC 32.9 g/dL (31-35); MEAN CORPUSCULAR VOLUME 81.7 fL (81-99); MONOCYTES # (AUTO) 0.2 (0.2-0.8); MONOCYTES % 3.5 % (4.4-11.3); NEUTROPHILS # (AUTO) 3.6 (2.1-6.9); NEUTROPHILS % 77.6 % (38.7-80.0); PLATELET COUNT 61 x10e3/uL (140-360); RED BLOOD COUNT 4.98 x10e6/uL (3.6-5.1); RED CELL DISTRIBUTION WIDTH 12.9 % (11.7-14.4)
[2019-01-15 22:01] LABS: ALANINE AMINOTRANSFERASE 22 IU/L (0-55); ALBUMIN 3.5 g/dL (3.5-5.0); ALKALINE PHOSPHATASE 72 IU/L (40-150); ANION GAP 12.7 mmol/L (8-16); BLOOD UREA NITROGEN 12 mg/dL (7-26); BUN/CREATININE RATIO 13 (6-25); CALCIUM 8.8 mg/dL (8.4-10.2); CARBON DIOXIDE 24 mmol/L (22-29); CHLORIDE 103 mmol/L (98-107); CREATINE KINASE 64 IU/L (29-168); CREATININE, SERUM 0.94 mg/dL (0.57-1.11); EST GLOMERULAR FILTRATION RATE > 60 ML/MIN (60-); GLUCOSE 110 mg/dL (74-118); POTASSIUM 3.7 mmol/L (3.5-5.1); SODIUM 136 mmol/L (136-145)
[2019-01-15 22:21] LABS: BILIRUBIN,URINE NEGATIVE (NEGATIVE); CLARITY,URINE SL CLOUDY (CLEAR); COLOR,URINE YELLOW (YELLOW); KETONES,URINE NEGATIVE (NEGATIVE); LEUKOCYTE ESTERASE ,URINE NEGATIVE (NEGATIVE); NITRITE,URINE NEGATIVE (NEGATIVE); PROTEIN,URINE DIPSTICK TRACE (NEGATIVE); URINE UROBILINOGEN 1 mg/dL (0.2 - 1)
[2019-01-15 22:34] LABS: BACTERIA,URINE MODERATE /HPF; EPITHELIAL CELLS,URINE MANY /LPF
--- NOTE | 2019-01-15 22:56 | Diagnostic Imaging Report ---
EXAMINATION: CT of the abdomen and pelvis without contrast. TECHNIQUE: Spiral CT images of the abdomen and pelvis were performed from the lung bases to the lesser trochanters. No intravenous contrast was given due to history of iodine allergy.. Coronal and sagittal reformatted images were obtained. COMPARISON: CT abdomen and pelvis without contrast 06/09/2018 CLINICAL HISTORY:Left-sided abdominal pain DISCUSSION: ABSENCE OF INTRAVENOUS CONTRAST DECREASES SENSITIVITY FOR DETECTION OF FOCAL LESIONS AND VASCULAR PATHOLOGY. ABDOMEN/PELVIS: LOWER THORAX: Unremarkable. HEPATOBILIARY: Liver is at the upper limit of normal in size and shows diffusely decreased attenuation consistent with tendinosis. No focal lesions. No intra or extrahepatic biliary ductal dilation. GALLBLADDER: Not visualized SPLEEN: No splenomegaly. PANCREAS: No focal masses or ductal dilatation. ADRENALS: No adrenal nodules. KIDNEYS/URETERS: No hydronephrosis, stones, or solid mass lesions. PELVIC ORGANS/BLADDER: Evaluation of the pelvis is limited by beam hardening artifact from bilateral hip prosthesis. Visualized portions of the bladder and uterus are unremarkable. No adnexal masses. PERITONEUM/RETROPERITONEUM: No free air or fluid. LYMPH NODES: No intra-abdominal,retroperitoneal, pelvic or inguinal lymphadenopathy. VESSELS: Minimal atherosclerotic calcification of the distal abdominal aorta. GI TRACT: No bowel dilation or evidence of obstruction. No pericolonic inflammatory changes. Diverticulosis of the sigmoid colon, without diverticulitis. Appendix is identified and normal in caliber. BONES AND SOFT TISSUES: No aggressive lytic lesions. Stable moderate degenerative disc changes L5-S1 and grade 2 anterolisthesis of L5 on S1 secondary to bilateral pars interarticularis defects. IMPRESSION: 1. No acute abdominal or pelvic abnormalities. Specifically, no acute abnormal findings in the left abdomen to explain the patient's pain. Signed by: Dr. Lucio Costa M.D. on 01/15/2019 10:53 PM
[2019-01-15 22:57] LABS: INR 1.03
[2019-01-15 22:58] LABS: PARTIAL THROMBOPLASTIN TIME 29.7 seconds (23.8-35.5)
[2019-01-15 23:26] VITALS: BP 105/73
== END 2019-01-15 23:38 | disposition home or self-care (01) ==
LOC: ER 19:55
DX: R10.12 Left upper quadrant pain (principal); R07.89 Other chest pain; R11.0 Nausea; R19.7 Diarrhea, unspecified; N30.90 Cystitis, unspecified without hematuria
CPT/HCPCS: 36415; 71045; 74176; 80053; 81001; 82550; 82553; 83605; 83690; 83880; 84484; 85025; 85610; 85730; 87040; 87086; 93005; 99284; J2405; J7030; 87205

== ENCOUNTER 2020-08-10 17:07 | Emergency (ER) | payer MEDICARE ==
[~2020-08-10] VITALS: Ht 157.5 cm; Wt 108.9 kg
[2020-08-10] MEDS ORDERED: KETOROLAC TROMETHAMINE 30 MG/ML VIAL IV STA (17:37)
[2020-08-10] MEDS ORDERED: DIPHENHYDRAMINE HCL 25 MG CAP PO ONE (17:45)
[2020-08-10] MEDS ORDERED: METOCLOPRAMIDE HCL 10 MG/2ML VIAL IV ONE (17:45)
[2020-08-10] MEDS ORDERED: SODIUM CHLORIDE 0.9% 1000ML 1,000 ML IV SCH (17:45)
[2020-08-10 17:54] LABS: BASOPHILS % 0.2 % (0.0-1.0); EOSINOPHILS # (AUTO) 0.1 (0.0-0.4); EOSINOPHILS % 2.3 % (0.0-6.0); HEMATOCRIT 40.6 % (34.2-44.1); HEMOGLOBIN 13.4 g/dL (12.0-16.0); LYMPHOCYTES # (AUTO) 2.2 (1.0-3.2); LYMPHOCYTES % 39.2 % (18.0-39.1); MEAN CORPUSCULAR HEMOGLOBIN 26.9 pg (28-32); MEAN CORPUSCULAR VOLUME 81.4 fL (81-99); MONOCYTES # (AUTO) 0.4 (0.2-0.8); MONOCYTES % 6.2 % (4.4-11.3); NEUTROPHILS # (AUTO) 2.9 (2.1-6.9); NEUTROPHILS % 51.7 % (38.7-80.0); PLATELET COUNT 110 x10e3/uL (140-360); RED BLOOD COUNT 4.99 x10e6/uL (3.6-5.1)
[2020-08-10 18:08] LABS: ALANINE AMINOTRANSFERASE 22 IU/L (0-55); ALBUMIN 3.9 g/dL (3.5-5.0); ALBUMIN/GLOBULIN RATIO 1.1 (0.8-2.0); ALKALINE PHOSPHATASE 106 IU/L (40-150); ANION GAP 14.9 mmol/L (8-16); BLOOD UREA NITROGEN 15 mg/dL (7-26); BUN/CREATININE RATIO 18 (6-25); CALCIUM 8.7 mg/dL (8.4-10.2); CARBON DIOXIDE 23 mmol/L (22-29); CHLORIDE 107 mmol/L (98-107); CREATININE, SERUM 0.85 mg/dL (0.57-1.11); EST GLOMERULAR FILTRATION RATE > 60 ML/MIN (60-); GLUCOSE 167 mg/dL (74-118); POTASSIUM 3.9 mmol/L (3.5-5.1); SODIUM 141 mmol/L (136-145)
[2020-08-10] MEDS ORDERED: IOPAMIDOL 370 MG/ML 200 ML INFUS..BTL INJ ONE (18:29)
[2020-08-10] MEDS ORDERED: SODIUM CHLORIDE 0.9% 100 ML ONE (18:29)
[2020-08-10 20:45] VITALS: BP 146/67
== END 2020-08-10 20:48 | disposition home or self-care (01) ==
LOC: ER 17:15
DX: R51.9 Headache, unspecified (principal); E11.65 Type 2 diabetes mellitus with hyperglycemia; I10 Essential (primary) hypertension; G40.909 Epilepsy, unspecified, not intractable, without status epilepticus; Z86.79 Personal history of other diseases of the circulatory system
CPT/HCPCS: 36415; 70496; 70498; 80053; 85025; 99284; J1885; J2765; J7030; J7050; Q9967

== ENCOUNTER 2021-03-06 10:28 | Emergency (ER) | payer MEDICARE ==
[~2021-03-06] VITALS: Ht 157.5 cm; Wt 104.3 kg
[2021-03-06 11:22] LABS: BASOPHILS % 0.3 % (0.0-1.0); EOSINOPHILS # (AUTO) 0.2 (0.0-0.4); EOSINOPHILS % 2.1 % (0.0-6.0); HEMATOCRIT 42.2 % (34.2-44.1); HEMOGLOBIN 13.5 g/dL (12.0-16.0); LYMPHOCYTES # (AUTO) 2.1 (1.0-3.2); LYMPHOCYTES % 27.2 % (18.0-39.1); MEAN CORPUSCULAR HEMOGLOBIN 27.2 pg (28-32); MEAN CORPUSCULAR VOLUME 85.1 fL (81-99); MONOCYTES # (AUTO) 0.4 (0.2-0.8); MONOCYTES % 5.6 % (4.4-11.3); NEUTROPHILS % 64.5 % (38.7-80.0); PLATELET COUNT 132 x10e3/uL (140-360); RED BLOOD COUNT 4.96 x10e6/uL (3.6-5.1); RED CELL DISTRIBUTION WIDTH 13.2 % (11.7-14.4)
[2021-03-06 11:24] LABS: CLARITY,URINE SL CLOUDY (CLEAR); COLOR,URINE YELLOW (YELLOW); LEUKOCYTE ESTERASE ,URINE NEGATIVE (NEGATIVE); NITRITE,URINE NEGATIVE (NEGATIVE); PROTEIN,URINE DIPSTICK NEGATIVE (NEGATIVE)
[2021-03-06 11:25] LABS: KETONES,URINE NEGATIVE (NEGATIVE); URINE UROBILINOGEN 0.2 mg/dL (0.2 - 1)
[2021-03-06 11:40] LABS: BACTERIA,URINE MODERATE /HPF; EPITHELIAL CELLS,URINE MANY /LPF; RBC,URINE 0-5 /HPF (0-5); WBC,URINE (MAN) 0-5 /HPF (0-5)
[2021-03-06 11:42] LABS: ALANINE AMINOTRANSFERASE 25 IU/L (0-55); ALBUMIN 3.8 g/dL (3.5-5.0); ALBUMIN/GLOBULIN RATIO 1.1 (0.8-2.0); ALKALINE PHOSPHATASE 114 IU/L (40-150); ANION GAP 14.5 mmol/L (8-16); BLOOD UREA NITROGEN 11 mg/dL (7-26); BUN/CREATININE RATIO 12 (6-25); CALCIUM 8.4 mg/dL (8.4-10.2); CARBON DIOXIDE 25 mmol/L (22-29); CHLORIDE 105 mmol/L (98-107); CREATINE KINASE 106 IU/L (29-168); CREATININE, SERUM 0.89 mg/dL (0.57-1.11); EST GLOMERULAR FILTRATION RATE 66 ML/MIN (60-); GLUCOSE 128 mg/dL (74-118); POTASSIUM 4.5 mmol/L (3.5-5.1); SODIUM 140 mmol/L (136-145)
[2021-03-06] MEDS ORDERED: SODIUM CHLORIDE 0.9% 1000ML 1,000 ML IV STA (12:25)
[2021-03-06] MEDS ORDERED: KETOROLAC TROMETHAMINE 30 MG/ML VIAL IV ONE (13:00)
[2021-03-06] MEDS ORDERED: ONDANSETRON HCL INJ 2MG/ML 2ML 2 MG/ML VIAL IV ONE (13:00)
== END 2021-03-06 14:02 | disposition home or self-care (01) ==
LOC: ER 11:00
DX: R10.12 Left upper quadrant pain (principal); R11.2 Nausea with vomiting, unspecified; R19.7 Diarrhea, unspecified; E11.65 Type 2 diabetes mellitus with hyperglycemia; K44.9 Diaphragmatic hernia without obstruction or gangrene; I10 Essential (primary) hypertension; G40.909 Epilepsy, unspecified, not intractable, without status epilepticus; Z86.79 Personal history of other diseases of the circulatory system
CPT/HCPCS: 36415; 74177; 80053; 81001; 82550; 82553; 83690; 84484; 85025; 93005; 99284; C9113; J1885; J2405; J7030

== ENCOUNTER 2021-05-13 19:00 | Emergency (ER) | payer MEDICARE ==
[~2021-05-13] VITALS: Ht 157.5 cm; Wt 104.3 kg
[2021-05-13] MEDS ORDERED: MUCINEX DM ER1 EACH PO (20:52)
== END 2021-05-13 21:01 | disposition home or self-care (01) ==
LOC: ER 19:08
DX: J40 Bronchitis, not specified as acute or chronic (principal); R05.9 Cough, unspecified; I10 Essential (primary) hypertension; E11.9 Type 2 diabetes mellitus without complications; G40.909 Epilepsy, unspecified, not intractable, without status epilepticus; Z86.79 Personal history of other diseases of the circulatory system
CPT/HCPCS: 71046; 99283